=== PATIENT | female | born 1980 | race Caucasian/White ===

== ENCOUNTER 2021-05-15 07:25 | Emergency (ER) | payer BC, SELFPAY ==
[2021-05-15 07:47] VITALS: BP 129/76; PULSE 102; RESP 18; TEMP 36.8; O2SAT 98; BMI 47.8
--- NOTE | 2021-05-15 08:10 | ED_ITS ---
HPI - Weakness General Chief complaint: Weakness Stated complaint: weakness Time Seen by Provider: 05/15/21 08:10 Source: patient Mode of arrival: ambulatory Limitations: no limitations History of Present Illness HPI Narrative: patient with a history of anemia secondary to abnormal uterine bleeding. Started on control which controlled her bleeding. Patient does not have heavy bleeding. Patient denies diabetes, never had COVID and is vaccinated. Complaint: generalized weakness Onset (ago): day(s) Duration: intermittent Location: generalized Severity: moderate Associated symptoms: denies other symptoms Related Data Allergies Allergy/AdvReac Type Severity Reaction Status Date / Time No Known Allergies Allergy Verified 05/15/21 07:47 [No Known Allergies*] Review of Systems Constitutional: Constitutional: Reports no additional constitutional complaints Eyes: Eyes: Reports no additional eye complaints ENT: Denies dizziness Cardiovascular: Cardiovascular: Reports no additional cardiovascular complaints Respiratory: Respiratory: Reports as per HPI Gastrointestinal: Gastrointestinal: Reports no additional gastrointestinal complaints Genitourinary: Genitourinary: Reports no additional female genitourinary complaints Musculoskeletal: Musculoskeletal: Reports no additional musculoskeletal complaints Integumentary/Breasts: Skin/Breast: Denies rash Neurologic: Reports system reviewed and no additional complaints, except as documented, Denies dizziness and Denies Sensory deficit (Neuro) Psychiatric: Psychiatric: Denies anxiety [facility] Past Medical History Medical History Anemia Social History Social History Advance Directives: No Advance Directives Information Provided: Yes Patient : No Physical Exam Vital Signs: Vital Signs: Last Vital Signs Temp 98.2 F 05/15/21 07:47 Pulse 99 05/15/21 08:49 Resp 18 05/15/21 07:47 BP 154/104 H 05/15/21 08:49 Pulse Ox 98 05/15/21 07:47 Body Mass Index 47.8 Const: Other: obese female appearing healthy General: healthy appearing Nutritional Appearance: obese Orientation/consciousness: oriented to person and patient oriented x3 Limitations: no limitations HENMT: Head: Yes normal to inspection Ears: external ears normal General nose exam: Normal external nose present Mouth: Normal oral and palatal mucosa present and oropharynx normal Throat: Yes posterior oropharynx normal Eyes: General: appearance normal, both eyes and all related structures Neck: Other: supple Neck: Yes normal visual inspection Chest: Chest palpation & inspection: normal inspection of the chest Resp: Auscultation: clear to auscultation bilaterally Cardio: Jugular venous distension: no JVD Rate: regular rate Rhythm: regular rhythm Heart sounds: S1 normal heart sound present and S2 normal heart sound present GI: Inspection: Yes normal to inspection Palpation (GI): Soft to palpation, nontender and No hepatosplenomegaly present Auscultation: normal bowel sounds : General: Yes no CVA tenderness Back/Spine/Pelvis: Back: no CVA tenderness Skin: General skin exam: no rashes or lesions noted Neuro: General: oriented to person and patient oriented x3 Cranial nerves: Yes CN's II-XII intact bilaterally Motor exam (neuro): 5/5 motor strength present throughout Sensory Exam: No Sensory deficit (Neuro) Extrem: General: Yes normal to inspection Psych: Appearance: grossly normal Course Reevaluation(s) Reevaluation #1: patient is not orthostatic, labs are normal. patient is dry by UA: specific gravity 1.030. Will encourage hydration Time: 10:19 MDM - Weakness Lab Data Result diagrams: 05/15/21 08:34 05/15/21 08:34 Labs: Lab Results 05/15/21 05/15/21 05/15/21 Range/Units 08:34 08:34 08:57 WBC 8.6 (4.8-10.8) X10*3/uL RBC 3.92 L (4.20-5.50) X10*6/uL Hgb 12.2 (12.0-16.0) g/dl Hct 37.3 (37.0-47.0) % MCV 95.2 (80.0-98.0) fL MCH 31.1 (27.0-33.0) pg MCHC 32.7 (31.0-35.0) g/dl RDW 13.2 (11.0-16.0) % Plt Count 259 (160-400) X10*3/uL MPV 11.1 (9.4-12.3) fL Immature Gran % (Auto) 0.2 (0.0-0.4) % Neut % (Auto) 75.1 H (45-73) % Lymph % (Auto) 15.4 L (20-40) % [place] % (Auto) 7.8 (2-11) % Eos % (Auto) 0.9 (0-4) % Baso % (Auto) 0.6 (0-2) % Lymph # (Auto) 1.3 (1.2-4.9) X10*3/uL [place] # (Auto) 0.7 (0.1-1.2) X10*3/uL Eos # (Auto) 0.1 (0.0-0.4) X10*3/uL Baso # (Auto) 0.1 (0.0-0.2) X10*3/uL Abs Immat Gran (auto) 0.02 (0.00-0.03) X10*3/uL Absolute Neuts (auto) 6.5 (2.0-8.3) x10*3/uL Absolute Nucleated RBC 0.000 (0.0-0.012) X10*3/uL Nucleated RBC % (auto) 0.0 (0.0-0.2) /100WBC Sodium 139 (135-145) mmol/L Potassium 3.9 (3.3-5.1) mmol/L Chloride 107 (96-108) mmol/L Carbon Dioxide 24 (22-29) mmol/L Anion Gap 12 (12-20) BUN 13 (9-16) mg/dL Creatinine 0.84 (0.5-1.4) mg/dL Estim Creat Clear Calc 101.8 Estimated GFR > 60 Random Glucose 108 (60-115) mg/dL Calcium 8.4 (8.4-10.2) mg/dL Urine Color YELLOW Urine Appearance CLEAR Urine pH 6.0 (5.0-8.0) Ur Specific [place] >= 1.030 H (1.005-1.025) Urine Protein TRACE (NEG-TRACE) MG/DL Urine Glucose (UA) NEG (NEG) MG/DL Urine Ketones NEG (NEG) MG/DL Urine Blood 1+ H (NEG) Urine Nitrite NEG (NEG) Ur Leukocyte Esterase NEG (NEG) Urine RBC 1-4 (0) /HPF Urine WBC 5-9 H (0-4) /HPF Ur Squamous Epith Cells 2+ /LPF Urine Bacteria TRACE /LPF Urine Test (NEGATIVE) 05/15/21 Range/Units 08:57 WBC (4.8-10.8) X10*3/uL RBC (4.20-5.50) X10*6/uL Hgb (12.0-16.0) g/dl Hct (37.0-47.0) % MCV (80.0-98.0) fL MCH (27.0-33.0) pg MCHC (31.0-35.0) g/dl RDW (11.0-16.0) % Plt Count (160-400) X10*3/uL MPV (9.4-12.3) fL Immature Gran % (Auto) (0.0-0.4) % Neut % (Auto) (45-73) % Lymph % (Auto) (20-40) % [place] % (Auto) (2-11) % Eos % (Auto) (0-4) % Baso % (Auto) (0-2) % Lymph # (Auto) (1.2-4.9) X10*3/uL [place] # (Auto) (0.1-1.2) X10*3/uL Eos # (Auto) (0.0-0.4) X10*3/uL Baso # (Auto) (0.0-0.2) X10*3/uL Abs Immat Gran (auto) (0.00-0.03) X10*3/uL Absolute Neuts (auto) (2.0-8.3) x10*3/uL Absolute Nucleated RBC (0.0-0.012) X10*3/uL Nucleated RBC % (auto) (0.0-0.2) /100WBC Sodium (135-145) mmol/L Potassium (3.3-5.1) mmol/L Chloride (96-108) mmol/L Carbon Dioxide (22-29) mmol/L Anion Gap (12-20) BUN (9-16) mg/dL Creatinine (0.5-1.4) mg/dL Estim Creat Clear Calc Estimated GFR Random Glucose (60-115) mg/dL Calcium (8.4-10.2) mg/dL Urine Color Urine Appearance Urine pH (5.0-8.0) Ur Specific [place] (1.005-1.025) Urine Protein (NEG-TRACE) MG/DL Urine Glucose (UA) (NEG) MG/DL Urine Ketones (NEG) MG/DL Urine Blood (NEG) Urine Nitrite (NEG) Ur Leukocyte Esterase (NEG) Urine RBC (0) /HPF Urine WBC (0-4) /HPF Ur Squamous Epith Cells /LPF Urine Bacteria /LPF Urine Test NEGATIVE (NEGATIVE) Discharge Plan Discharge Clinical Impression: Dehydration Patient Disposition: Home, Self-Care Instructions: Dehydration (ED) Referrals: Physician,None [Primary Care Provider] - 1 week
[2021-05-15 08:38] LABS: MANUAL DIFF FLAG NO
[2021-05-15 08:40] LABS: Basophils Absolute Auto 0.1 X10*3/uL (0.0-0.2); Basophils Percent Auto 0.6 % (0-2); Eosinophils Absolute Auto 0.1 X10*3/uL (0.0-0.4); Eosinophils Percent Auto 0.9 % (0-4); Hematocrit 37.3 % (37.0-47.0); Hemoglobin 12.2 g/dl (12.0-16.0); Imm Gran Abs Auto 0.02 X10*3/uL (0.00-0.03); Imm Gran Pct Auto 0.2 % (0.0-0.4); Lymphocytes Absolute Auto 1.3 X10*3/uL (1.2-4.9); Lymphocytes Percent Auto 15.4 % (20-40); Mean Corpuscular HGB Conc 32.7 g/dl (31.0-35.0); Mean Corpuscular Hemoglobin 31.1 pg (27.0-33.0); Mean Corpuscular Volume 95.2 fL (80.0-98.0); Mean Platelet Volume 11.1 fL (9.4-12.3); Monocytes Absolute Auto 0.7 X10*3/uL (0.1-1.2); Monocytes Percent Auto 7.8 % (2-11); Neutrophils Absolute Auto 6.5 x10*3/uL (2.0-8.3); Neutrophils Percent Auto 75.1 % (45-73); Platelet Count 259 X10*3/uL (160-400); Red Blood Count 3.92 X10*6/uL (4.20-5.50); Red Cell Distribution Width 13.2 % (11.0-16.0); White Blood Count 8.6 X10*3/uL (4.8-10.8)
[2021-05-15 08:47] VITALS: BP 142/91; PULSE 96
[2021-05-15 08:48] VITALS: BP 137/94; PULSE 97
[2021-05-15 08:49] VITALS: BP 154/104; PULSE 99
[2021-05-15 08:56] LABS: Anion Gap 12 (12-20); Blood Urea Nitrogen 13 mg/dL (9-16); Calcium 8.4 mg/dL (8.4-10.2); Carbon Dioxide 24 mmol/L (22-29); Chloride 107 mmol/L (96-108); Creatinine Clr Calc Pharmacy 101.8; Estimated Glomerular Filt Rate > 60; Glucose Random 108 mg/dL (60-115); Potassium 3.9 mmol/L (3.3-5.1); Sodium 139 mmol/L (135-145)
[2021-05-15 09:06] LABS: Appearance Urine CLEAR; Color Urine YELLOW; Glucose Urine UA NEG (NEG); Leukocyte Esterase Urine NEG (NEG); Nitrite Urine NEG (NEG); Specific Gravity - Urine >= 1.030 (1.005-1.025); UACC Culture Trigger NO; Urine Blood 1+ (NEG); Urine Ketones NEG (NEG); Urine Protein TRACE MG/DL (NEG-TRACE)
[2021-05-15 09:09] LABS: UPreg QC Valid YES; Urine Pregnancy NEGATIVE (NEGATIVE)
[2021-05-15 09:17] LABS: UACC CULT YES
[2021-05-15 09:18] LABS: Bacteria Urine TRACE /LPF; Squamous Epithelial Cell Urine 2+ /LPF
== END 2021-05-15 10:26 | disposition home or self-care (01) ==
PROVIDERS: Emergency Provider Emergency Medicine
DX: E86.0 Dehydration (principal); R53.1 Weakness
CPT/HCPCS: 36415; 80048; 81001; 81025; 85025; 87086; 87147; 99284

== ENCOUNTER → 2023-05-10 07:38 | Outpatient (BNVA) | payer OTHER, SELFPAY | DX: Z13.89 Encounter for screening for other disorder (principal) | CPT/HCPCS: 90715; 99202 ==

== ENCOUNTER 2023-10-27 12:34 | Emergency (ER) | payer OTHER, SELFPAY ==
--- NOTE | ~2023-10-27 | CT_ITS ---
EXAMINATION: CT HEAD WITHOUT CONTRAST CLINICAL INFORMATION: Increased pressure COMPARISON: None available. TECHNIQUE: Contiguous axial imaging was performed from the skull base to vertex without intravenous administration of contrast. This CT examination was performed using dose optimization techniques as appropriate, variously including the following: *Automated exposure control *Adjustment of mA and/or kV according to patient size (this includes techniques or standardized protocols for targeted exams where dose is matched to indication/reason for exam; i.e. extremities or head) *Use of iterative reconstruction technique DLP: 669 mGy-cm FINDINGS: There is no evidence of acute intracranial hemorrhage or territorial infarction. Calcification involving the anterior falx. No abnormal mass effect or midline shift is seen. [place] to white matter differentiation is well preserved. No extra-axial fluid collections are identified. The ventricles are normal in size. There is no abnormal attenuation within the brain parenchyma. The osseous structures and soft tissues are normal. The mastoid air cells and visualized portions of the paranasal sinuses are well aerated. CT/CT head/brain wo IV con IMPRESSION: No acute intracranial pathology.
[2023-10-27 12:44] VITALS: BP 143/96; PULSE 80; RESP 16; TEMP 36.8; O2SAT 98; BMI 48.3
--- NOTE | 2023-10-27 12:44 | ED_ITS ---
HPI - Headache General Chief Complaint: Headache Stated Complaint: Migraine Time Seen by Provider: 10/27/23 16:04 Source: patient, RN notes reviewed and old records reviewed Mode of arrival: ambulatory Limitations: no limitations History of Present Illness HPI Narrative: 43 year old female with pmhx significant for migraines and anemia presents to the ED today for evaluation of intermittent migraine headaches x2 weeks. States this initially felt like her typical migraine however now feels increased pressure along her temples and posterior head which is unusual for her. No known exacerbating factors. Her migraines are typically improved with OTC acetaminophen, Excedrin and ibuprofen but these do not provide full relief. Endorses associated photophobia, phonophobia, dizziness, and shakiness to bilateral hands when holding things. Denies blurred vision, double vision, vision loss. Denies nausea or vomiting. Denies chance of . Related Data Allergies Allergy/AdvReac Type Severity Reaction Status Date / Time No Known Allergies Allergy Verified 10/27/23 12:49 [No Known Allergies*] Review of Systems 2 Review of Systems: Constitutional: No fever, chills, fatigue, night sweats, weight changes ENT/Mouth: No ear pain, hearing loss, nasal congestion, sinus pain, rhinorrhea, sore throat Eyes: No eye pain, swelling, redness, vision changes, discharge Cardio: No chest pain, palpitations, ORELLANA, orthopnea, peripheral edema Pulm: No SOB, cough, sputum, wheezing, dyspnea, hemoptysis GI: No nausea, vomiting, hematemesis, abdominal pain, diarrhea, constipation, hematochezia, melena : No irregular bleeding, dysuria, frequency, urgency, hesitancy, hematuria, flank pain, urinary flow changes, urinary incontinence or retention MSK: No back pain, neck pain, joint pain, myalgias Skin: No lesions, rashes Neuro: No weakness, numbness, paresthesias, LOC, dizziness, +headache Psych: No anxiety/panic, depression, SI/HI, AH/VH All other systems reviewed and are negative. [facility] Past Medical History Attestation statement: The following information was validated with the patient. Source: old records reviewed and nursing notes reviewed Medical History Anemia Physical Exam 2 Vital Signs: Vital Signs: Last Vital Signs Temp 97.3 F 10/27/23 21:32 Pulse 67 10/27/23 21:32 Resp 16 10/27/23 21:32 BP 111/61 10/27/23 21:32 Pulse Ox 98 10/27/23 21:32 O2 Del Method Room Air 10/27/23 21:32 BMI result Body Mass Index 48.3 vital signs stable Const: General: cooperative, healthy appearing, comfortable and no acute distress Orientation/consciousness: patient oriented x3 Limitations: no limitations HEENT: Head: Yes normal to inspection, Yes No palpable skull fracture present, Yes normocephalic, Yes atraumatic, No scalp tenderness and No Temporal artery tenderness present Face and sinus: Yes normal facial exam and Yes sinuses nontender Eyes: General: appearance normal, both eyes and all related structures C onjunctivae: conjunctivae normal Sclerae: sclerae normal Pupils: Equal, round and reactive pupils present EOM: EOMs intact bilaterally Direct Ophthalmoscopy: normal light reflex and no papilledema Neck: Neck: Yes normal visual inspection, Yes full ROM, Yes no lymphadenopathy and Yes no meningeal signs Resp: Effort & Inspection: normal respiratory effort and able to speak in complete sentences Auscultation: clear to auscultation bilaterally Cardio: Rate: regular rate Rhythm: regular rhythm Skin: General skin exam: no rashes or lesions noted Neuro: General: patient oriented x3, gait normal, moves all extremities, no meningeal signs and no focal motor deficits Cranial nerves: Yes Equal, round and reactive pupils present Gait exam (Neuro): Normal gait present C oordination: [id number] test normal, [id number] test normal and Normal rapid alternating movements of the distal upper extremity present (Neuro) P upils: Normal pupillary reactivity/response: bilateral Extrem: General: Yes normal to inspection Course Course Course Narrative: This is an RME performed by Marilia John CNP: Additional HPI, ROS, PE not included below will be deferred to primary provider. Patient is a 43-year-old female who presents emergency department with migraine. Reports a history of intermittent migraine headaches over the past few weeks, typical of her usual migraine but appears to be occurring more frequently and today pain was felt to be worse. Reports onset current migraine this morning, typically does alleviate some with [id number] acetaminophen Excedrin ibuprofen but does not have full relief. She denies being on any alternative migraine medications in the past. Endorses photophobia, phonophobia, dizziness, shakiness to the hands. Denies vision changes, numbness or tingling, recent URI symptoms. Physical exam: NIH - 0. speaking clear full sentences. Ambulatory with a steady gait. Plan: placed in pending bed availability Reevaluation(s) Reevaluation #1: 1808-- CT scan head/brain without evidence of bleed or infarction. There is a calcification along the anterior falx. No obvious mass effect or midline shift. Scan essentially unremarkable. Patient reports minimal improvement in pain with toradol, reglan, and benadryl. She still reports pressure to her temples and occiput. > basic labs and IV mag sulfate ordered Reevaluation #2: Resolution of migraine after magnesium infusion. Requesting discharge home check feels reasonable at this time. No focal neurological deficits. Ambulatory with a steady gait. Discussed return precautions. All questions answered. Stable for discharge Time: 21:00 Medications Administered Discontinued Medications Generic Name Dose Route Start Last Admin Trade Name Joseline PRN Reason Stop Dose Admin Diphenhydramine HCl 50 mg 10/27/23 16:23 10/27/23 16:50 Diphenhydramine Hcl 50 Mg/Ml Vial IVPUSH 10/27/23 16:24 50 mg ONCE ONE Administration Magnesium Sulfate 2 gm in 50 mls @ 25 mls/hr 10/27/23 18:08 10/27/23 21:31 Magnesium Sulfate/H2o IV 10/27/23 20:07 Infused ONCE ONE Infusion Ketorolac Tromethamine 30 mg 10/27/23 16:23 10/27/23 16:53 Ketorolac Tromethamine 30 Mg/Ml Vial IM 10/27/23 16:24 30 mg ONCE ONE Administration Metoclopramide HCl 10 mg 10/27/23 16:23 10/27/23 16:46 Metoclopramide Hcl 10 Mg/2 Ml Vial IVPUSH 10/27/23 16:24 10 mg ONCE ONE Administration Medical Decision Making Medical Decision Making MDM Narrative: 43 year old female with pmhx significant for migraines presents to the ED today for evaluation of intermittent migraine headaches x2 weeks. Patient initially hypertensive to 143/96, now normotensive. Vitals otherwise WNL. Afebrile. Exam nonfocal. PERRLA. NIH stroke scale 0. Cerebellum intact. Ambulating with steady gait. Lying comfortably on exam bed with the lights dimmed due to photophobia. No palpable temporal artery. No scalp tenderness. No jaw claudication. Strength 5/5 intact throughout. Differential diagnosis includes headache, migraine headache, tension headache, dehydration, anemia, electrolyte abnormality. Lower suspicion for ICH, CVA, dissection, cerebellar stroke, pseudotumor cerebri, meningitis, encephalitis, vertigo. Plan for basic labs, pain control, and CT head/brain. Differential Diagnosis Differential Diagnoses: The differential diagnosis associated with the presentation includes as above. Admission/Observation Not indicated Lab Data MDM Lab Attestation statement: I reviewed the patient's lab results. As above 10/27/23 19:41 10/27/23 19:41 Labs: Lab Results 10/27/23 Range/Units 19:41 WBC 11.1 H (4.8-10.8) X10*3/uL RBC 4.65 (4.20-5.50) X10*6/uL Hgb 14.8 D (12.0-16.0) g/dl Hct 43.1 (37.0-47.0) % MCV 92.7 (80.0-98.0) fL MCH 31.8 (27.0-33.0) pg MCHC 34.3 (31.0-35.0) g/dl RDW 13.0 (11.0-16.0) % Plt Count 288 (160-400) X10*3/uL MPV 10.9 (9.4-12.3) fL Immature Gran % (Auto) 0.4 (0.0-0.4) % Neut % (Auto) 67.1 (45-73) % Lymph % (Auto) 23.2 (20-40) % [place] % (Auto) 7.3 (2-11) % Eos % (Auto) 1.1 (0-4) % Baso % (Auto) 0.9 (0-2) % Lymph # (Auto) 2.6 (1.2-4.9) X10*3/uL [place] # (Auto) 0.8 (0.1-1.2) X10*3/uL Eos # (Auto) 0.1 (0.0-0.4) X10*3/uL Baso # (Auto) 0.1 (0.0-0.2) X10*3/uL Abs Immat Gran (auto) 0.04 H (0.00-0.03) X10*3/uL Absolute Neuts (auto) 7.5 (2.0-8.3) x10*3/uL Absolute Nucleated RBC 0.000 (0.0-0.012) X10*3/uL Nucleated RBC % (auto) 0.0 (0.0-0.2) /100WBC ESR 7 (0-20) MM/HR Sodium 141 (135-145) mmol/L Potassium 3.4 (3.3-5.1) mmol/L Chloride 105 (96-108) mmol/L Carbon Dioxide 23 (22-29) mmol/L Anion Gap 16 (12-20) BUN 9 (9-16) mg/dL Creatinine 0.68 (0.5-1.4) mg/dL Estim Creat Clear Calc 123.9 Estimated GFR > 60 Random Glucose 84 (60-115) mg/dL Calcium 9.7 D (8.4-10.2) mg/dL Magnesium 2.0 (1.6-2.6) mg/dL Total Bilirubin 0.5 (0.0-1.0) mg/dL AST 15 (5-31) U/L ALT 21 (0-31) U/L Alkaline Phosphatase 62 (39-117) U/L C-Reactive Protein 0.69 H (< or = 0.50) mg/dL Total Protein 7.2 (6.5-8.0) g/dL Albumin 4.0 (3.5-5.0) g/dL Beta HCG, Quant < 2 mIU/mL Independent Interpretation I performed an independent interpretation of an: CT Scan Interpretation: CT scan showing calcified anterior falx, agree with radiologist's interpretation. Radiology Impression Discussion of test interpretation with radiology: I have reviewed the radiologist's reading. Radiologist Impression: EXAMINATION: CT HEAD WITHOUT CONTRAST CLINICAL INFORMATION: Increased pressure COMPARISON: None available. TECHNIQUE: Contiguous axial imaging was performed from the skull base to vertex without intravenous administration of contrast. This CT examination was performed using dose optimization techniques as appropriate, variously including the following: *Automated exposure control *Adjustment of mA and/or kV according to patient size (this includes techniques or standardized protocols for targeted exams where dose is matched to indication/reason for exam; i.e. extremities or head) *Use of iterative reconstruction technique DLP: 669 mGy-cm FINDINGS: There is no evidence of acute intracranial hemorrhage or territorial infarction. Calcification involving the anterior falx. No abnormal mass effect or midline shift is seen. [place] to white matter differentiation is well preserved. No extra-axial fluid collections are identified. The ventricles are normal in size. There is no abnormal attenuation within the brain parenchyma. The osseous structures and soft tissues are normal. The mastoid air cells and visualized portions of the paranasal sinuses are well aerated. CT/CT head/brain wo IV con IMPRESSION: No acute intracranial pathology. Prescription Management I considered prescription management with: Pain Medication Chronic Conditions Patient?s care impacted by: Other (migraines) Social Determinants Patient?s care significantly limited by Social Determinants of Health including: Other Social Determinant of Health Critical Care Time Critical Care Time Critical Care Time: No Discharge Plan Discharge Clinical Impression: Migraine Patient Disposition: Home, Self-Care Instructions: Migraine Headache (ED) Additional Instructions: The CT scan of your head/brain does not demonstrate mass or bleed. It does show calcification on the anterior falx like we discussed. You have been provided with a referral to a neurologist. Please call them to establish care. They will not call you. You have also been provided with a referral to a new primary care doctor. You may call them to establish care. They will not call you. Please return with new or worsening symptoms. In the case of an emergency call 911. Referrals: [facility] [place] Family Medicine [Provider Group] [facility] [place] Primary [facility] [Provider Group] [facility] [place] Primary [facility] [Provider Group] [facility] [place] [facility] [place] Group] Stand Alone Forms: Work/School Release Interventions: ED Discharge Assessment Last Done: 10/27/23 21:32 Discharge Date/Time: 10/27/23 21:32 Print Language: Hungarian
[2023-10-27] MEDS: Metoclopramide HCl 10 MG/2 ML VIAL IVPUSH (16:46)
[2023-10-27] MEDS: diphenhydrAMINE HCL 50 MG/ML VIAL IVPUSH (16:50)
[2023-10-27] MEDS: Ketorolac Tromethamine 30 MG/ML VIAL IM (16:53)
[2023-10-27 17:08] VITALS: BP 114/50; PULSE 74; RESP 16; TEMP 36.7; O2SAT 97
--- NOTE | 2023-10-27 17:25 | PC.NURSE ---
radiology contacted for stat read of CT head- pt reporting less pain 6/10 but consistent pressure in right of head, and back of head. MILLICENT Molina aware
[2023-10-27 18:11] VITALS: BP 111/61; PULSE 67; RESP 16; TEMP 36.3; O2SAT 98
[2023-10-27 19:45] LABS: MANUAL DIFF FLAG NO
[2023-10-27 19:46] LABS: Basophils Absolute Auto 0.1 X10*3/uL (0.0-0.2); Basophils Percent Auto 0.9 % (0-2); Eosinophils Absolute Auto 0.1 X10*3/uL (0.0-0.4); Eosinophils Percent Auto 1.1 % (0-4); Hematocrit 43.1 % (37.0-47.0); Hemoglobin 14.8 g/dl (12.0-16.0); Imm Gran Abs Auto 0.04 X10*3/uL (0.00-0.03); Imm Gran Pct Auto 0.4 % (0.0-0.4); Lymphocytes Absolute Auto 2.6 X10*3/uL (1.2-4.9); Lymphocytes Percent Auto 23.2 % (20-40); Mean Corpuscular HGB Conc 34.3 g/dl (31.0-35.0); Mean Corpuscular Hemoglobin 31.8 pg (27.0-33.0); Mean Corpuscular Volume 92.7 fL (80.0-98.0); Mean Platelet Volume 10.9 fL (9.4-12.3); Monocytes Absolute Auto 0.8 X10*3/uL (0.1-1.2); Monocytes Percent Auto 7.3 % (2-11); Neutrophils Absolute Auto 7.5 x10*3/uL (2.0-8.3); Neutrophils Percent Auto 67.1 % (45-73); Platelet Count 288 X10*3/uL (160-400); Red Blood Count 4.65 X10*6/uL (4.20-5.50); White Blood Count 11.1 X10*3/uL (4.8-10.8)
[2023-10-27 20:00] LABS: Alanine Aminotransferase 21 U/L (0-31); Alkaline Phosphatase 62 U/L (39-117); Anion Gap 16 (12-20); Aspartate Amino Transferase 15 U/L (5-31); Bilirubin Total 0.5 mg/dL (0.0-1.0); Blood Urea Nitrogen 9 mg/dL (9-16); C Reactive Protein 0.69 mg/dL (< or = 0.50); Calcium 9.7 mg/dL (8.4-10.2); Carbon Dioxide 23 mmol/L (22-29); Chloride 105 mmol/L (96-108); Creatinine Clr Calc Pharmacy 123.9; Estimated Glomerular Filt Rate > 60; Glucose Random 84 mg/dL (60-115); Potassium 3.4 mmol/L (3.3-5.1); Sodium 141 mmol/L (135-145); Total Protein 7.2 g/dL (6.5-8.0)
[2023-10-27] MEDS: Magnesium Sulfate/H2O 2 GM/50 ML PIGGYBACK IV (20:03)
[2023-10-27 20:21] LABS: HCG Quantitative < 2 mIU/mL
[2023-10-27 20:44] LABS: Erythrocyte Sedimentation Rate 7 MM/HR (0-20)
[2023-10-27 21:32] VITALS: BP 111/61; PULSE 67; RESP 16; TEMP 36.3; O2SAT 98
== END 2023-10-27 21:32 | disposition home or self-care (01) ==
PROVIDERS: Physician Assistant Medical; Emergency Provider Emergency Medicine Emergency Medical Services
DX: G43.909 Migraine, unspecified, not intractable, without status migrainosus (principal)
CPT/HCPCS: 36415; 70450; 80053; 83735; 84702; 85025; 85652; 86140; 96365; 96372; 96375; 99284; J1200; J1885; J2765; J3475

== ENCOUNTER 2023-11-10 11:42 | Emergency (ER) | payer OTHER, SELFPAY ==
[2023-11-10 11:52] VITALS: BP 150/87; PULSE 68; RESP 16; TEMP 36.6; O2SAT 100; BMI 48.5
--- NOTE | 2023-11-10 11:53 | ED.HA ---
HPI - Headache General Chief Complaint: Headache Stated Complaint: migrane Time Seen by Provider: 11/10/23 18:34 Source: patient Mode of arrival: ambulatory Limitations: no limitations History of Present Illness HPI Narrative: Patient is a 43-year-old female presenting to emergency department for evaluation of migraine headache began yesterday and has associated nausea without vomiting, photophobia, phonophobia. Took apap at 0815 without relief. She was recently referred to see a neurologist/headache specialist but does not have appointments until later this year. Related Data Allergies Allergy/AdvReac Type Severity Reaction Status Date / Time No Known Allergies Allergy Verified 11/10/23 11:54 [No Known Allergies*] Review of Systems Review of Systems: Yes all other systems are reviewed and are negative PMFSH Past Medical History Attestation statement: The following information was validated with the patient. Source: old records reviewed Medical History Anemia Social History Social History Advance Directives: No Advance Directives Information Provided: No Physical Exam Vital Signs: Vital Signs: Last Vital Signs Temp 97.8 F 11/10/23 11:52 Pulse 65 11/10/23 18:46 Resp 16 11/10/23 11:52 BP 138/91 H 11/10/23 18:46 Pulse Ox 98 11/10/23 18:46 O2 Del Method Room Air 11/10/23 18:46 BMI result Body Mass Index 48.5 Appearance: Alert.?Oriented to person, place and time. No acute distress.?Normal affect. Eyes: Pupils equal, round and reactive to light.? ENT: Pharynx normal.?? Neck: Normal inspection.? Neck supple.?? CVS: Heart sounds normal. Normal heart rate and rhythm.? Pulses normal.?? Respiratory: No respiratory distress.? Lung sounds clear to auscultation bilaterally?? Abdomen: Soft and non-tender. Normoactive bowel sounds. Skin: Skin warm and dry.? Normal skin color.? ? Extremities: No lower extremity edema.? No calf ttp? Neuro: Moves all extremities spontaneously. Sensation intact bilaterally. CN II-XII intact. No focal neuro deficits. Ambulates with normal steady gait. Course Reevaluation(s) Reevaluation #1: Unrelieved with Fioricet. She would really like to avoid the magnesium, as she is hopeful to trial an abortive therapy that she can have available to her at home. Will trial sumatriptan. We discussed use of magnesium oxide 400 mg orally daily for migraine prevention. Time: 19:45 Reevaluation #2: Patient signed out to Candido Cee NP pending re-evaluation and disposition planning Time: 20:56 Reevaluation #3: Patient denies any relief of headache from Fioricet or sumatriptan. Will medicate patient with IV magnesium as this has improved her symptoms in the past. Time: 22:41 Additional Reevaluation(s): 11/11/23 01:15 Patient reports good relief of migraine from magnesium given in the ED. Again discussed use of PO magnesium oxide with patient at home on a regular basis for migraine relief. Return precautions discussed. Patient verbalized understanding of and agreement with plan. Medications Administered Discontinued Medications Generic Name Dose Route Start Last Admin Trade Name Datq PRN Reason Stop Dose Admin Acetaminophen/Butalbital/Caffeine 1 tab 11/10/23 18:34 11/10/23 18:44 Butalb/Acetamin/Caff 50/325/40 Tablet PO 11/10/23 18:35 1 tab ONCE ONE Administration Magnesium Sulfate 2 gm in 50 mls @ 25 mls/hr 11/10/23 22:41 11/11/23 00:30 Magnesium Sulfate/H2o IV 11/11/23 00:40 25 mls/hr ONCE ONE Administration Sumatriptan Succinate 50 mg 11/10/23 19:45 11/10/23 20:15 Sumatriptan Succinate 50 Mg Tablet PO 11/10/23 19:46 50 mg ONCE ONE Administration Medical Decision Making Medical Decision Making [facility] Narrative: Patient is a 43-year-old female with past medical history of migraines and anemia presenting to the emergency department for evaluation of migraine headache since yesterday as per HPI. On exam she has no focal neurological deficits, NIH stroke score is 0, at this time do not feel that emergent head CT is warranted, do not suspect ICH, SDH, intracranial mass. Review of her medical record she was evaluated in the emergency department 10/27/2023 for similar station, she initially received ketorolac Reglan and Benadryl IV without any improvement, subsequently received magnesium 2 g IV with resolution of her migraine. She had a CT scan then of the head which was without acute intracranial pathology. We discussed treatment options today, including magnesium IV, however she would like to trial something orally so that she could be discharged with a prescription for something in the event that OTC medications are not helpful in the future. She does not have a primary care provider at this time so she does not have the option for close follow-up. Will trial Fioricet. Differential Diagnosis Differential Diagnoses: The differential diagnosis associated with the presentation includes (See narrative above) Lab Data Labs: Lab Results 11/10/23 Range/Units 18:50 Influenza Type A (PCR) NEGATIVE (Negative) Influenza Type B (PCR) NEGATIVE (Negative) RSV RNA Qual (PCR) NEGATIVE (Negative) SARS-CoV-2 RNA (RT-PCR) NEGATIVE (Negative) Prescription Management I considered prescription management with: Pain Medication Discharge Plan Discharge Clinical Impression: Migraine Patient Disposition: Home, Self-Care Instructions: Migraine Headache (ED) Additional Instructions: You have been evaluated in the emergency department today for headache. Your evaluation did not show evidence of medical conditions requiring emergent intervention at this time, and your pain improved with medication in the ED. We recommend you take 600 mg ibuprofen every 6 hours or Tylenol 650 mg every 6 hours as needed for pain. If needed, you can alternate these medications so that you take 1 medication every 3 hours. For instance, at noon take ibuprofen, then at 3:00 p.m. take Tylenol, then at 6:00 p.m. take ibuprofen. Please follow-up with your primary care provider within 2 days. We also recommend that you take MAGNESIUM OXIDE 400mg at home which you can purchase over the counter for help with your migraine pain at home. Return to the emergency department if you experience worsening or uncontrolled pain, vision changes, recurrent vomiting, difficulty with normal activities, abnormal behavior, difficulty walking, numbness, weakness, or any other concerning symptoms. Print Language: [place]
--- NOTE | 2023-11-10 18:43 | PC.NURSE ---
patient a&ox3, medicated for 8 headache, tech to obtain repeat vitals, call samuels within reach, will continue to monitor
[2023-11-10] MEDS: Butalb/Acetamin/Caff 50/325/40 TABLET 1 TAB PO (18:44)
[2023-11-10 18:46] VITALS: BP 138/91; PULSE 65; O2SAT 98
[2023-11-10 19:32] LABS: Influenza A PCR NEGATIVE (Negative); Influenza B PCR NEGATIVE (Negative); Resp Syncy Virus RNA Qual PCR NEGATIVE (Negative); SARS COV2 PCR INHOUSE NEGATIVE (Negative)
--- NOTE | 2023-11-10 19:57 | PC.NURSE ---
pharmacy called for missing medications
[2023-11-10] MEDS: SUMAtriptan succinate 50 MG TABLET PO (20:15)
--- NOTE | 2023-11-10 20:21 | PC.NURSE ---
pt medicated for continued migraine
[2023-11-11] MEDS: Magnesium Sulfate/H2O 2 GM/50 ML PIGGYBACK IV (00:30)
[2023-11-11 02:23] VITALS: BP 136/72; PULSE 68; RESP 16; TEMP 36.9; O2SAT 99
== END 2023-11-11 02:27 | disposition home or self-care (01) ==
PROVIDERS: Nurse Practitioner Family; Emergency Provider Internal Medicine
DX: G43.909 Migraine, unspecified, not intractable, without status migrainosus (principal); Z03.818 Encounter for observation for suspected exposure to other biological agents ruled out
CPT/HCPCS: 0241U; 96365; 96366; 99284; J3475

== ENCOUNTER 2024-02-02 08:01 | Emergency (ER) | payer OTHER, SELFPAY ==
[2024-02-02 08:07] VITALS: BP 150/95; PULSE 83; RESP 18; TEMP 37.2; O2SAT 98; BMI 48.8
--- NOTE | 2024-02-02 08:32 | ED.HA ---
HPI - Headache General Chief Complaint: Headache Stated Complaint: Headache Time Seen by Provider: 02/02/24 08:18 Source: patient Mode of arrival: ambulatory Limitations: no limitations History of Present Illness ED Provider: ROOSEVELT ZULUAGA Narrative: 43 yo female with chronic headaches has been here a few times for same not on thinners daily headaches around front of head wraps around taking tylenol/motrin and magnesium. Has not had her lens prescription checked in a while. Cannot see her PCP until February and no Neurology until April. CT scan back in October of this year no acute findings. MD elicited complaint: headache Pertinent past history: migraines Onset (ago): month(s) (4) Onset description: gradually Location: right, left, frontal, temporal and band-like Severity: moderate Quality & Timing: dull, squeezing and constant Exacerbating factors: movement of head/neck, sitting/standing, light and noise Relieving factors: NSAIDs Context: occurred at rest Associated symptoms: nausea, photophobia, sensitivity to sound and eye pain Treatments prior to arrival: none Related Data Previous Rx's ?Medication ?Instructions ?Recorded topiramate 25 mg tablet 25 mg PO DAILY #60 tabs 02/02/24 Allergies Allergy/AdvReac Type Severity Reaction Status Date / Time No Known Allergies Allergy Verified 02/02/24 08:10 [No Known Allergies*] Review of Systems Review of Systems: Constitutional : No Fever, No Chills, No Fatigue ENT/Mouth : No sore throat, No Rhinorrhea Eyes: No Eye Pain, No Swelling, No Redness Cardiovascular : No Chest Pain, No SOB, No Dyspnea on Exertion Respiratory : No Cough, No Sputum Gastrointestinal :pos Nausea, No Vomiting, No Diarrhea, No abdominal Pain Genitourinary : No Dysuria, No Urinary Frequency, No Hematuria, Musculoskeletal : No joint pain, No Myalgias, No Joint Swelling Skin : No Skin Lesions, No rash Neuro : No Weakness, No Numbness, No Dizziness, positive Headache Psych : No Anxiety/Panic, No Depression All other systems reviewed and are negative [facility] Past Medical History Attestation statement: The following information was validated with the patient. Source: old records reviewed Medical History Anemia Social History Social History (Updated 02/02/24 @ 08:42 by Cyn Katz DO) Patient Tobacco Use Status: Never used Tobacco Smoked in Last 30 Days: No Use of substances other than those prescribed or required for medical reasons: No Advance Directives: No Advance Directives Information Provided: No Do you have a plan to hurt others: No Plan Physical Exam Vital Signs: Vital Signs: Last Vital Signs Temp 98.9 F 02/02/24 08:07 Pulse 83 02/02/24 08:07 Resp 18 02/02/24 08:07 BP 150/95 H 02/02/24 08:07 Pulse Ox 98 02/02/24 08:07 O2 Del Method Room Air 02/02/24 08:07 BMI result Body Mass Index 48.8 Appearance: Alert. Oriented X3. No acute distress. Eyes: Pupils equal, round and reactive to light. ENT: Pharynx normal. Neck: Normal inspection. Neck supple. normal ROM CVS: Normal heart rate and rhythm. Pulses normal. Respiratory: No respiratory distress. Breath sounds normal. Abdomen: Soft and nontender. Skin: Skin warm and dry. Normal skin color. Normal skin turgor. Extremities: No lower extremity edema. No calf ttp Neuro: Oriented X 3. No motor deficit. No sensory deficit. Medications Administered Generic Name Dose Route Start Last Admin Trade Name Freq PRN Reason Stop Dose Admin Sodium Chloride 1,000 mls @ 999 mls/hr 02/02/24 08:27 02/02/24 08:38 Ns IV 02/02/24 09:27 999 mls/hr .Q1H1M ONE Administration Discontinued Medications Generic Name Dose Route Start Last Admin Trade Name Freq PRN Reason Stop Dose Admin Diphenhydramine HCl 25 mg 02/02/24 08:27 02/02/24 08:39 Diphenhydramine Hcl 50 Mg/Ml Vial IVPUSH 02/02/24 08:28 25 mg ONCE ONE Administration Ketorolac Tromethamine 15 mg 02/02/24 08:27 02/02/24 08:42 Ketorolac Tromethamine 15 Mg/Ml Vial IVPUSH 02/02/24 08:28 15 mg ONCE ONE Administration Metoclopramide HCl 10 mg 02/02/24 08:27 02/02/24 08:41 Metoclopramide Hcl 10 Mg/2 Ml Vial IVPUSH 02/02/24 08:28 10 mg ONCE ONE Administration Medical Decision Making Medical Decision Making MDM Narrative: 43 yo female with recent headaches seen here multiple times for the same at this time not toxic no neuro deficits no fevers given chronicity and prior CT scan doubt mass or SAH, no fevers to suggest [employer] infection at this time will provide GI cocktail and we talked about starting a medication such as topiramate she has no hx of severe depression or SI discussed starting 25mg daily x 1 week then 50mg. Will continue this until she sees her PCP. Discussed side effects her and mom want to proceed Differential Diagnosis Differential Diagnoses: The differential diagnosis associated with the presentation includes tension headaches, migraines Admission/Observation Consideration of admission/observation: Escalation of care including admission/observation considered feels better stable for DC Independent Historian Clinical information obtained from an independent historian. History obtained from or confirmed by: Parent External Record Review External record reviewed: Inpatient record Prescription Management I considered prescription management with: Other Discharge Plan Discharge Clinical Impression: Migraine Patient Disposition: Home, Self-Care Instructions: Topiramate (By mouth), Migraine Headache (ED) Additional Instructions: please get your eyes checked return for any worsening symptoms or concerns continue tylenol motrin and magnesium follow up with primary care doctor as planned Prescriptions: New topiramate 25 mg tablet 25 mg PO DAILY Qty: 60 0RF Rx Instructions: 25mg daily for 7 days then 50mg daily Stand Alone Forms: Work/School Release Print Language: Vincentian
[2024-02-02] MEDS: 0.9 % Sodium Chloride 1,000 ML 999 ML IV (08:38)
[2024-02-02] MEDS: diphenhydrAMINE HCL 50 MG/ML VIAL 25 MG IVPUSH (08:39)
[2024-02-02] MEDS: Metoclopramide HCl 10 MG/2 ML VIAL IVPUSH (08:41)
[2024-02-02] MEDS: Ketorolac Tromethamine 15 MG/ML VIAL IVPUSH (08:42)
[2024-02-02 10:24] VITALS: BP 117/60; PULSE 82; RESP 18; TEMP 36.7; O2SAT 96
[2024-02-02] MEDS: Cyclobenzaprine HCl 10 MG TABLET PO (10:41)
[2024-02-02] MEDS: Acetaminophen 325 MG TABLET 975 MG PO (10:41)
[2024-02-02 11:43] VITALS: BP 128/68; PULSE 86; RESP 18; TEMP 36.7; O2SAT 98
== END 2024-02-02 11:44 | disposition home or self-care (01) ==
PROVIDERS: Emergency Provider Emergency Medicine
DX: G43.909 Migraine, unspecified, not intractable, without status migrainosus (principal); R11.0 Nausea; H53.143 Visual discomfort, bilateral
CPT/HCPCS: 96361; 96374; 96375; 99284; J1200; J1885; J2765

== ENCOUNTER 2024-05-12 08:04 | Outpatient (AMB) | payer SELFPAY ==
--- NOTE | 2024-05-12 08:19 | A.OFFVIS_ITS ---
Vital Signs 05/12/24 08:20 Height 5 ft Weight 262 lb 6 oz BMI 51.2 BP 118/70 Blood Pressure Location Rt brachial Position Sitting Pulse 67 Pulse Source Pulse Oximeter Pulse Oximetry (%) 98 Oxygen Delivery Method Room Air Intake Visit Reasons: 5/6LVM+Let - [id number] Intake Note: Headaches are random and lots of pressure behind the head. Accompanied by: Self / Same As Patient Allergies No Known Allergies [No Known Allergies*] Allergy (Verified 05/12/24 08:24) Medication List - Last Reconciled 05/12/24 by DOE Pinto No Known Home Meds Do you need a note to return to daycare/school/sports/work: No HPI Comments Details: Right-handed 44-yr-old female presents for new pt evaluation of headache disorder per referral from PCP. Pt reports she has had headaches since childhood which have been worsening and changing earlier this year without known cause. She has daily headaches for some time, but this intensified and has had stronger daily headaches and now more pressure and right facial numbness sensation w/ her migraine attacks since the beginning of the year. She has not seen neurology before. She is hoping to understand the cause of her migraine and head pressure s/s. PMH and ROS are notable for:? General: fatigue, KALE- has needed transfusions, intentional wt loss- through diet. Vision- vision may be blurry at times w/wo headache. 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 Family history of migraine or other headache disorder: her mom had a benign brain tumor. Pertinent denials include: Tinnitus or whooshing tinnitus. History of concussion/head injury, Respiratory d/o, CV disease, Clotting or hematology d/o, Endocrine d/o, metabolic d/o, History of seizure, syncope, or drop attacks, constipation. Lifestyle considerations: Sleep routine: Usual sleep routine: varies d/t work Sleep difficulties: sometimes. Endorses: Snoring, Excessive daytime sleepiness, Fatigue, Restless sleep, Restless legs- sometimes can be bothersome, urge to move, has to get up and walk around. Caffeine use: has been decreasing use- 1-2 cups per day Substance use: none Exercise:?tries. 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 Not currently sexually active. Headache questionnaire:? Previous work-up: October 2023, Head CT- read as normal. Last eye exam- Typical headache characteristics: Prodrome symptoms: fatigue Aura: Once or twice has seen little white dots before the headache Pain intensity: moderate to severe Location, quality, characteristics: Pressure starts in the back of her head, and moves into the right retroorbital and periorbital eye region, becomes right frontal/wayne-orbital pounding and throbbing. Associated symptoms: photophobia, phonophobia, osmophobia, nausea, once had spinning dizziness, not right in space dizziness, lightheadedness, fatigue, cognitive difficulties, activity intolerance, watery eyes, hands become tingling and cold, right side of face/eye- altered sensation/numbness- which is a newer symptom. Postdrome: lingers Triggers: no known triggers. WOLFE worsens if bends over. Time of day: No specific time of day Duration and Frequency: Almost daily. An attack can last days to weeks. How does headache impact your life? Has had to miss to work and has had 3 ER visits since October 2023. Current acute medication use/interventions: Excedrin 2 tabs almost daily, Ibuprofen 600mg about once a week, Tylenol 1000mg every other day. Current preventative medication use: None Non-pharmacological interventions: Rest, migraine cooling cap. [facility] Medical History Anemia Social History (Updated 02/02/24 @ 08:42 by Cyn Katz DO) Patient Tobacco Use Status: Never used Tobacco Physical Exam Vital Signs: Last Vital Signs Pulse 67 05/12/24 08:20 BP 118/70 05/12/24 08:20 Pulse Ox 98 05/12/24 08:20 Oxygen Delivery Method Room Air 05/12/24 08:20 BMI result Body Mass Index 51.2 Const Orientation/consciousness: patient oriented x3 Resp Effort & Inspection: normal respiratory effort and able to speak in complete sentences Neuro Other: No palpable scalp tenderness. Mild posterior cervical tightness. Good cervical ROM, though extension elicits mild discomfort. General: patient oriented x3 Cranial nerves: Yes CN's II-XII intact bilaterally (w/ very mild right sided facial assymetry), Yes Bilaterally intact EOM present and Yes Nystagmus not present Cognition (Neuro): normal cognition Gait exam (Neuro): Normal gait present Motor exam (neuro): 5/5 motor strength present throughout Deep tendon reflexes (DTR's): Right triceps reflex intensity grade: 2+, Left triceps reflex intensity grade: 2+, Rt Biceps (C5, C6): 2+, Left biceps reflex intensity grade: 2+, Right brachioradialis reflex intensity grade: 2+, Left brachioradialis reflex intensity grade: 2+, Right patellar reflex intensity grade: 2+ and Left patellar reflex intensity grade: 2+ Coordination: [id number] test normal, tandem gait normal and Romberg test negative Pupils: Normal pupillary reactivity/response: bilateral Psych Appearance: grossly normal Mental Status: mental status grossly normal Speech and movement: Normal speech and movement present Affect: normal affect Attitude: cooperative Thought process: Normal thought process present Assessment & Plan Assessment & Plan (1) Worsening headaches: Comment: Increased frequency, intensity, and new symptoms of pressure, right facial numbness/altered sensation Code(s): R51.9 - Headache, unspecified Category: Medical (2) Chronic migraine with aura: Comment: sensory aura s/s- cold/tingling hands Code(s): G43.E09 - Chronic migraine with aura, not intractable, without status migrainosus Category: Medical (3) Snoring: Code(s): R06.83 - Snoring Category: Medical (4) Excessive daytime sleepiness: Comment: ESS 10 Code(s): G47.19 - Other hypersomnia Category: Medical (5) BMI 50.0-59.9, adult: Code(s): Z68.43 - Body mass index [BMI] 50.0-59.9, adult Category: Medical (6) Restless leg syndrome: Code(s): G25.81 - Restless legs syndrome Category: Medical (7) Paresthesia: Code(s): R20.2 - Paresthesia of skin Category: Medical (8) Fatigue: Code(s): R53.83 - Other fatigue Category: Medical Plan Pt advised to undergo: Eye exam to assess for papilledema and visual field testing Brain MRI w/wo to assess for secondary etiologies of new worsening headache w/ new right facial paresthesias/numbness. In-lab PSG to assess for sleep apnea and PLMS. Labs- for common etiologies of worsening headaches, paresthesias, and RLS s/s. Note- pt states that she currently does not have medical insurance or PCP. Pt advised on resources to help her obtain insurance. Once she has insurance, pt will notify us so we can enter orders. 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 For overall headache management: * Optimize good self-care, including but not limited to maintaining a healthy diet, adequate fluid intake, adequate sleep, and engaging in regular physical activity. * Track headaches, especially after any treatment regimen changes. Migraine [employer] is one of many headache tracking apps. * Information shared on non-pharmacological interventions which may help to alleviate headache attack burden. For light sensitivity: Patient may benefit from trying blue light filtering glasses, green glasses, green light therapy. Avoiding wearing sunglasses inside. For sound sensitivity: Patent may benefit from trying noise cancellation ear plugs. Neuromodulation devices, which can be used alone or with pharmacological treatment. * Information shared on sleep education resources, specifically resource for shift work sleep d/o's. For acute headache treatment: Discussed importance of taking acute medications at the first sign of headache, however stressed importance of avoiding acute medication overuse (especially with combined headache medications). Stop Excedrin use. Trial Sumatriptan 100mg tab, 1/2 - 1 tab (50-100mg) at onset of headache, may repeat in 2 hours. Max of 2 tabs (200mg) per 24 hours. May adjunct with OTC Tylenol 650mg q 4 hours, Ibuprofen 600mg q 6 hours, or Naproxen 440mg q 12 hrs prn. Potential adverse effects of triptans, include but are not limited to nausea, fatigue, chest tightness/tingling (usually passes within a few minutes), medication overuse headaches. Previous acute migraine medication trials: Excedrin- ineffective. Acute migraine medication contraindications: None at this time For headache prevention medication: Preventative medications should be taken routinely as prescribed for best effect, it may take several weeks for full effect to take effect. Start Riboflavin 400mg qam Start Magnesium 400mg qhs Start Topiramate 25mg tab- 1 tab qhs x's 1 wk, then 2 tabs qhs x's 1 wk, then 3 tabs qhs x's 1 wk, then 4 tabs qhs. Potential adverse effects of Topiramate, include but are not limited to fatigue, cognitive changes, paresthesias (tingling), vision changes, kidney stones. Previous migraine prevention medication trials: None at this time Migraine prevention medication contraindications: None at this time Pt seen in collaboration w/ Dr Kiley Britt. Pt to follow-up in 3-4 months or sooner prn. Orders: Orders IRON PROFILE Today D50.9 - Iron deficiency anemia, unspecified, G25.81 - Restless legs syndrome, R20.2 - Paresthesia of skin, R53.83 - Other fatigue, Z68.43 - Body mass index [BMI] 50.0-59.9, adult Vitamin D 25-OH (D2 and D3) Today D50.9 - Iron deficiency anemia, unspecified, G25.81 - Restless legs syndrome, R20.2 - Paresthesia of skin, R53.83 - Other fatigue, Z68.43 - Body mass index [BMI] 50.0-59.9, adult CRP High Sensitivity Today D50.9 - Iron deficiency anemia, unspecified, G25.81 - Restless legs syndrome, R20.2 - Paresthesia of skin, R53.83 - Other fatigue, Z68.43 - Body mass index [BMI] 50.0-59.9, adult Erythrocyte Sedimentation Rate Today D50.9 - Iron deficiency anemia, unspecified, G25.81 - Restless legs syndrome, R20.2 - Paresthesia of skin, R53.83 - Other fatigue, Z68.43 - Body mass index [BMI] 50.0-59.9, adult Lipid Panel with Reflex Today R79.82 - Elevated C-reactive protein (CRP), Z68.43 - Body mass index [BMI] 50.0-59.9, adult Ferritin Today D50.9 - Iron deficiency anemia, unspecified, G25.81 - Restless legs syndrome, R20.2 - Paresthesia of skin, R53.83 - Other fatigue, Z68.43 - Body mass index [BMI] 50.0-59.9, adult TSH reflex Free T4 Today D50.9 - Iron deficiency anemia, unspecified, G25.81 - Restless legs syndrome, R20.2 - Paresthesia of skin, R53.83 - Other fatigue, Z68.43 - Body mass index [BMI] 50.0-59.9, adult Vitamin B12 and Folate Today D50.9 - Iron deficiency anemia, unspecified, G25.81 - Restless legs syndrome, R20.2 - Paresthesia of skin, R53.83 - Other fatigue, Z68.43 - Body mass index [BMI] 50.0-59.9, adult Hemoglobin A1c Today D50.9 - Iron deficiency anemia, unspecified, G25.81 - Restless legs syndrome, R20.2 - Paresthesia of skin, R53.83 - Other fatigue, Z68.43 - Body mass index [BMI] 50.0-59.9, adult Comprehensive Met. Panel Today D50.9 - Iron deficiency anemia, unspecified, G25.81 - Restless legs syndrome, R20.2 - Paresthesia of skin, R53.83 - Other fatigue, Z68.43 - Body mass index [BMI] 50.0-59.9, adult Complete Blood Count Auto Diff Today D50.9 - Iron deficiency anemia, unspecified, G25.81 - Restless legs syndrome, R20.2 - Paresthesia of skin, R53.83 - Other fatigue, Z68.43 - Body mass index [BMI] 50.0-59.9, adult Medications: New riboflavin (vitamin B2) 400 mg PO DAILY 30 days 30 tabs 6RF sumatriptan succinate (0.5 - 1 x 100 mg) 50 - 100 mg orally at onset of headache, may repeat in 2 hrs PRN; max 2 tabs per day or 4 tabs/week (may take with Ibuprofen) 30 days 12 tabs 6RF migraine headache magnesium oxide may hold for loose stools 400 mg PO BEDTIME 30 days 30 tabs 6RF topiramate 1 tab qhs x's 1 wk, then 2 tabs qhs x's 1 wk, then 3 tabs qhs x's 1 wk, then 4 tabs qhs orally bedtime; 30 days 120 tabs 3RF Discontinued topiramate 25mg daily for 7 days then 50mg daily Discontinued Reason: Patient Completed Course 25 mg PO DAILY 60 tabs 0RF Coding Level of Care Code New Pt Level 4 (21026) Diagnoses Worsening headaches R51.9 Chronic migraine with aura G43.E09 Snoring R06.83 Excessive daytime sleepiness G47.19 BMI 50.0-59.9, adult Z68.43 Restless leg syndrome G25.81 Paresthesia R20.2 Fatigue R53.83
[2024-05-12 08:20] VITALS: BP 118/70; PULSE 67; O2SAT 98; BMI 51.2
== END 2024-05-12 09:55 | disposition home or self-care (01) ==
PROVIDERS: Visit Provider Nurse Practitioner Family
DX: G43.E09 Chronic migraine with aura, not intractable, without status migrainosus (principal); R06.83 Snoring; G47.19 Other hypersomnia; E66.01 Morbid (severe) obesity due to excess calories; Z68.43 Body mass index [BMI] 50.0-59.9, adult; G25.81 Restless legs syndrome; R20.2 Paresthesia of skin; R53.83 Other fatigue
CPT/HCPCS: 99204

== ENCOUNTER → 2024-05-12 08:04 | Outpatient (BNVA) | payer OTHER, SELFPAY | PROVIDERS: Visit Provider Nurse Practitioner Family | DX: G43.E09 Chronic migraine with aura, not intractable, without status migrainosus (principal); R06.83 Snoring; G47.19 Other hypersomnia; G25.81 Restless legs syndrome; R20.2 Paresthesia of skin; R53.83 Other fatigue | CPT/HCPCS: 99202 ==

== ENCOUNTER 2024-08-11 07:23 | Outpatient (REF) | payer OTHER, SELFPAY ==
[2024-08-11 09:58] LABS: MANUAL DIFF FLAG NO
[2024-08-11 10:13] LABS: Basophils Absolute Auto 0.1 X10*3/uL (0.0-0.2); Basophils Percent Auto 0.7 % (0-2); Eosinophils Absolute Auto 0.2 X10*3/uL (0.0-0.4); Eosinophils Percent Auto 1.4 % (0-4); Hematocrit 45.1 % (37.0-47.0); Imm Gran Abs Auto 0.04 X10*3/uL (0.00-0.03); Imm Gran Pct Auto 0.3 % (0.0-0.4); Lymphocytes Absolute Auto 2.5 X10*3/uL (1.2-4.9); Lymphocytes Percent Auto 20.9 % (20-40); Mean Corpuscular HGB Conc 33.3 g/dl (31.0-35.0); Mean Corpuscular Hemoglobin 30.7 pg (27.0-33.0); Mean Corpuscular Volume 92.4 fL (80.0-98.0); Mean Platelet Volume 11.5 fL (9.4-12.3); Monocytes Absolute Auto 0.8 X10*3/uL (0.1-1.2); Monocytes Percent Auto 7.1 % (2-11); Neutrophils Absolute Auto 8.2 x10*3/uL (2.0-8.3); Neutrophils Percent Auto 69.6 % (45-73); Platelet Count 312 X10*3/uL (160-400); Red Blood Count 4.88 X10*6/uL (4.20-5.50); Red Cell Distribution Width 13.9 % (11.0-16.0); White Blood Count 11.8 X10*3/uL (4.8-10.8)
[2024-08-11 10:20] LABS: Estimated Average Glucose 103 mg/dL; Hemoglobin A1C 128.1871 umol/L; Hemoglobin A1c % 5.2 % (<6.0); Total Hemoglobin (HGBA1C) 3856.1334 umol/L
[2024-08-11 10:55] LABS: Erythrocyte Sedimentation Rate 6 MM/HR (0-20)
[2024-08-11 11:11] LABS: Alanine Aminotransferase 27 U/L (0-31); Albumin Level 4.4 g/dL (3.5-5.0); Alkaline Phosphatase 69 U/L (39-117); Anion Gap 12 (12-20); Aspartate Amino Transferase 20 U/L (5-31); Bilirubin Total 0.4 mg/dL (0.0-1.0); Blood Urea Nitrogen 12 mg/dL (9-16); Calcium 9.4 mg/dL (8.4-10.2); Carbon Dioxide 23 mmol/L (22-29); Chloride 110 mmol/L (96-108); Cholesterol 217 mg/dL (<200); Estimated Glomerular Filt Rate > 60; Glucose Random 78 mg/dL (60-115); HDL Cholesterol 74 mg/dL (>40); Iron 39 mcg/dL (30-160); LDL Cholesterol Calculated 120 mg/dL (<100); Percent Iron Saturation 15 % (15-50); Potassium 4.1 mmol/L (3.3-5.1); Sodium 141 mmol/L (135-145); Total Iron Binding Capacity 266 mcg/dL (228-428); Total Protein 8.2 g/dL (6.5-8.0); Triglycerides 118 mg/dL (<150); Unsaturated Iron Binding 227 ug/dL
[2024-08-11 11:21] LABS: Ferritin 317 ng/mL (10-250); TSH reflex Free T4 0.79 uIU/mL (0.32-4.0)
[2024-08-11 11:25] LABS: Folate 16.2 ng/mL (> or = 4.0); Vitamin B12 926 pg/mL (200-900)
[2024-08-11 11:59] LABS: Reflex LDLD? No
[2024-08-15 09:09] LABS: CRP High Sensitivity 7.9 mg/L
[2024-08-15 16:02] LABS: Vitamin D 25-OH, D2 <4 ng/mL; Vitamin D 25-OH, D3 23 ng/mL; Vitamin D 25-OH, Total 23 ng/mL (30-100)
== END 2024-08-11 07:24 | disposition home or self-care (01) ==
LOC: HO.LAB 07:23
PROVIDERS: Visit Provider Nurse Practitioner Family
DX: D50.9 Iron deficiency anemia, unspecified (principal); R53.83 Other fatigue; R20.2 Paresthesia of skin; Z68.43 Body mass index [BMI] 50.0-59.9, adult; G25.81 Restless legs syndrome; R79.82 Elevated C-reactive protein (CRP); G43.E09 Chronic migraine with aura, not intractable, without status migrainosus; R06.83 Snoring; G47.19 Other hypersomnia
CPT/HCPCS: 36415; 80053; 80061; 82306; 82607; 82728; 82746; 83036; 83540; 84443; 85025; 85652; 86141; 99212

== ENCOUNTER 2024-08-11 07:23 | Outpatient (AMB) | payer OTHER, SELFPAY ==
[2024-08-11 07:45] VITALS: BP 116/72; PULSE 81; O2SAT 100; BMI 48.5
--- NOTE | 2024-08-11 07:45 | A.OFFVIS_ITS ---
Vital Signs 08/11/24 07:45 Height 5 ft Weight 248 lb 4 oz BMI 48.5 BP 116/72 Pulse 81 Pulse Source Pulse Oximeter Pulse Oximetry (%) 100 Oxygen Delivery Method Room Air Intake Visit Reasons: Follow up 3mo Intake Note: Patient present for follow up Migraine. Patient states she has not been taking Sumatriptan as it is making her groggy/loopy Allergies No Known Allergies [No Known Allergies*] Allergy (Verified 08/11/24 07:48) Medication List - Last Reconciled 08/11/24 by DOE Pinto magnesium oxide 400 mg PO BEDTIME 30 days naratriptan take 1/2 - 1 tab at onset of headache; if no relief may repeat 1 tab after at least 4 hrs; max = 2 tabs/24 hrs orally PRN; 30 days riboflavin (vitamin B2) 400 mg PO DAILY 30 days topiramate 1 tab qam x's 1 wk, then 2 tabs qam x's 1 wk, then 3 tabs qam x's 1 wk, then 4 tabs qam orally .; (continue topiramate 100mg qhs) 30 days topiramate 100 mg PO BEDTIME 30 days HPI Comments Details: Right-handed 44-yr-old female presents for f/u of worsening chronic migraine type headache and sleep difficulties. Pt reports her headaches are a little bit better. The headache is still a pressure which starts in the back of her head, and moves into the right retroorbital and periorbital eye region, becomes right frontal/wayne-orbital pounding and throbbing. Associated symptoms: photophobia, phonophobia, osmophobia, nausea, once had spinning dizziness, not right in space dizziness, lightheadedness, fatigue, cognitive difficulties, activity intolerance, watery eyes, hands become tingling and cold, right side of face/eye- altered sensation/numbness.. The headache is worse when standing or bending over. No longer having daily headache, but having more headaches days than not in a month. The headaches last days now instead of weeks. She was able to start and increase the topiramate up to 100 mg q.h.s.. She feels the riboflavin, magnesium, topiramate has helped some- and is tolerating it well. Pt tried Sumatriptan, however it was ineffective and makes her feel weird and loopy. She continues to endorse sleep difficulties- Snoring, Excessive daytime sleepiness, Fatigue, Restless sleep, Restless legs- sometimes can be bothersome, urge to move, has to get up and walk around. Endorses brief ringing tinnitus x's 2, Denies interval vision changes, pulsatile tinnitus. Right-handed 44-yr-old female presents for new pt evaluation of headache disorder per referral from PCP. Pt reports she has had headaches since childhood which have been worsening and changing earlier this year without known cause. She has daily headaches for some time, but this intensified and has had stronger daily headaches and now more pressure and right facial numbness sensation w/ her migraine attacks since the beginning of the year. She has not seen neurology before. She is hoping to understand the cause of her migraine and head pressure s/s. PMH and ROS are notable for:? General: fatigue, KALE- has needed transfusions, intentional wt loss- through diet. Vision- vision may be blurry at times w/wo headache. Musculoskeletal disorders or injury: chronic back issues Mood d/o: Anxiety- feels well managed CV: has had pre-syncopal feeling more so when anemic GI d/o: [employer]: Menses is now regular- has h/o menorrhagia. Family history of migraine or other headache disorder: her mom had a benign brain tumor. Pertinent denials include: Tinnitus or whooshing tinnitus. History of concussion/head injury, Respiratory d/o, CV disease, Clotting or hematology d/o, Endocrine d/o, metabolic d/o, History of seizure, syncope, or drop attacks, constipation. Lifestyle considerations: Sleep routine: Usual sleep routine: varies d/t work Sleep difficulties: sometimes. Endorses: Snoring, Excessive daytime sleepiness, Fatigue, Restless sleep, Restless legs- sometimes can be bothersome, urge to move, has to get up and walk around. Caffeine use: has been decreasing use- 1-2 cups per day Substance use: none Exercise:?tries. 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 Not currently sexually active. Headache questionnaire:? Previous work-up: October 2023, Head CT- read as normal. Last eye exam- Typical headache characteristics: Prodrome symptoms: fatigue Aura: Once or twice has seen little white dots before the headache Pain intensity: moderate to severe Location, quality, characteristics: Pressure starts in the back of her head, and moves into the right retroorbital and periorbital eye region, becomes right frontal/wayne-orbital pounding and throbbing. Associated symptoms: photophobia, phonophobia, osmophobia, nausea, once had spinning dizziness, not right in space dizziness, lightheadedness, fatigue, cognitive difficulties, activity intolerance, watery eyes, hands become tingling and cold, right side of face/eye- altered sensation/numbness- which is a newer symptom. Postdrome: lingers Triggers: no known triggers. WOLFE worsens if bends over. Time of day: No specific time of day Duration and Frequency: Almost daily. An attack can last days to weeks. How does headache impact your life? Has had to miss to work and has had 3 ER visits since October 2023. Current acute medication use/interventions: Excedrin 2 tabs almost daily, Ibuprofen 600mg about once a week, Tylenol 1000mg every other day. Current preventative medication use: None Non-pharmacological interventions: Rest, migraine cooling cap. [facility] Medical History Elevated C-reactive protein (CRP) Anemia Social History Patient Tobacco Use Status: Never used Tobacco Physical Exam Vital Signs: Last Vital Signs Pulse 81 08/11/24 07:45 BP 116/72 08/11/24 07:45 Pulse Ox 100 08/11/24 07:45 Oxygen Delivery Method Room Air 08/11/24 07:45 BMI result Body Mass Index 48.5 Const Orientation/consciousness: patient oriented x3 Resp Effort & Inspection: normal respiratory effort and able to speak in complete sentences Neuro General: patient oriented x3 Cranial nerves: Yes CN's II-XII intact bilaterally (w/ very mild right sided facial assymetry), Yes Bilaterally intact EOM present and Yes Nystagmus not present Cognition (Neuro): normal cognition Gait exam (Neuro): Normal gait present Motor exam (neuro): 5/5 motor strength present throughout Pupils: Normal pupillary reactivity/response: bilateral Psych Appearance: grossly normal Mental Status: mental status grossly normal Speech and movement: Normal speech and movement present Affect: normal affect Attitude: cooperative Thought process: Normal thought process present Assessment & Plan Assessment & Plan (1) Worsening headaches: Comment: Increased frequency, intensity, and new symptoms of pressure, right facial numbness/altered sensation Code(s): R51.9 - Headache, unspecified Category: Medical (2) Chronic migraine with aura: Comment: sensory aura s/s- cold/tingling hands Code(s): G43.E09 - Chronic migraine with aura, not intractable, without status migrainosus Category: Medical (3) Snoring: Code(s): R06.83 - Snoring Category: Medical (4) Excessive daytime sleepiness: Comment: ESS 10 Code(s): G47.19 - Other hypersomnia Category: Medical (5) BMI 50.0-59.9, adult: Code(s): Z68.43 - Body mass index [BMI] 50.0-59.9, adult Category: Medical (6) Restless leg syndrome: Code(s): G25.81 - Restless legs syndrome Category: Medical (7) Paresthesia: Code(s): R20.2 - Paresthesia of skin Category: Medical (8) Fatigue: Code(s): R53.83 - Other fatigue Category: Medical Plan As pt again has health insurance, pt is advised to undergo: Eye exam to assess for papilledema and visual field testing Brain MRI w/wo to assess for secondary etiologies of severe frequent headache w/ right facial paresthesias/numbness. In-lab PSG to assess for sleep apnea and PLMS. Labs- for common etiologies of worsening headaches, paresthesias, and RLS s/s. For overall headache management: * Optimize good self-care, including but not limited to maintaining a healthy diet, adequate fluid intake, adequate sleep, and engaging in regular physical activity. * Track headaches, especially after any treatment regimen changes. Migraine [employer]di[employer] is one of many headache tracking apps. * Information shared on non-pharmacological interventions which may help to alleviate headache attack burden. For light sensitivity: Patient may benefit from trying blue light filtering glasses, green glasses, green light therapy. Avoiding wearing sunglasses inside. For sound sensitivity: Patent may benefit from trying noise cancellation ear plugs. Neuromodulation devices, which can be used alone or with pharmacological treatment. * Continue to optimize sleep hygiene, information previously shared on sleep education resources, specifically resource for shift work sleep d/o's. For acute headache treatment: Stop Sumatriptan 50mg and 100mg- ineffective and not tolerated (causes loopiness and weird feeling). Trial Naratriptan 2.5mg tab, 1/2 - 1 tab (1.25-2.5mg) at onset of headache, may repeat in 4 hours. Max of 2 tabs (5mg) per 24 hours. May adjunct with OTC Tylenol 650mg every 4 hours, Ibuprofen (liquigel) 600mg every 6 hours, or Naproxen (liquigel) 440mg every 12 hrs as needed. Potential adverse effects of triptans, include but are not limited to nausea, fatigue, chest tightness/tingling (usually passes within a few minutes), medication overuse headaches. Previous acute migraine medication trials: Excedrin- ineffective. Sumatriptan 50mg and 100mg tab- ineffective and not tolerated (causes loopiness and weird feeling). Acute migraine medication contraindications: None at this time Future consideration: gepant For headache prevention medication: Preventative medications should be taken routinely as prescribed for best effect, it may take several weeks for full effect to take effect. Continue Riboflavin 400mg qam Continue Magnesium 400mg qhs Increase topiramate from 100 mg q.h.s. to: Topiramate 25 mg in a.m. and 100 mg q.h.s. x1 week Then, topiramate 50 mg in a.m. and 100 mg q.h.s. x1 week Then, topiramate 75 mg in a.m. and 100 mg q.h.s. x1 week Then, topiramate 100 mg b.i.d. Potential adverse effects of Topiramate, include but are not limited to fatigue, cognitive changes, paresthesias (tingling), vision changes, kidney stones. Previous migraine prevention medication trials: None at this time Migraine prevention medication contraindications: None at this time Will follow-up upon review of above and patient to follow-up in clinic in 6 months or sooner prn. Medications: New naratriptan take 1/2 - 1 tab at onset of headache; if no relief may repeat 1 tab after at least 4 hrs; max = 2 tabs/24 hrs orally PRN; 30 days 12 tabs 6RF migraine headache topiramate 100 mg PO BEDTIME 30 days 30 tabs 6RF Changed From topiramate 1 tab qhs x's 1 wk, then 2 tabs qhs x's 1 wk, then 3 tabs qhs x's 1 wk, then 4 tabs qhs orally bedtime; 30 days 120 tabs 3RF To topiramate 1 tab qam x's 1 wk, then 2 tabs qam x's 1 wk, then 3 tabs qam x's 1 wk, then 4 tabs qam orally .; (continue topiramate 100mg qhs) 30 days 120 tabs 3RF Discontinued sumatriptan succinate Discontinued Reason: Doctor's Order (0.5 - 1 x 100 mg) 50 - 100 mg orally at onset of headache, may repeat in 2 hrs PRN; max 2 tabs per day or 4 tabs/week (may take with Ibuprofen) 30 days 12 tabs 6RF migraine headache Coding Level of Care Code Est Pt Level 4 (53898) Diagnoses Worsening headaches R51.9 Chronic migraine with aura G43.E09 Snoring R06.83 Excessive daytime sleepiness G47.19 BMI 50.0-59.9, adult Z68.43 Restless leg syndrome G25.81 Paresthesia R20.2 Fatigue R53.83
== END 2024-08-11 08:29 | disposition home or self-care (01) ==
PROVIDERS: Visit Provider Nurse Practitioner Family
DX: G43.E09 Chronic migraine with aura, not intractable, without status migrainosus (principal); R06.83 Snoring; G47.19 Other hypersomnia; Z68.43 Body mass index [BMI] 50.0-59.9, adult; G25.81 Restless legs syndrome; R20.2 Paresthesia of skin; R53.83 Other fatigue
CPT/HCPCS: 99214

== ENCOUNTER 2024-08-14 08:52 | Outpatient (REF) | payer OTHER, SELFPAY ==
--- NOTE | ~2024-08-14 | MR_ITS ---
EXAMINATION: MR BRAIN WITHOUT AND WITH CONTRAST CLINICAL INFORMATION: Headache COMPARISON: Correlated to CT dated October 27, 2023 demonstrated no gross abnormality. TECHNIQUE: Multiplanar, multisequence MRI of the brain was obtained before and after the intravenous administration of 10.0 mL (Gadavist) without reported immediate complications.. FINDINGS: No restricted diffusion. No acute intracranial hemorrhage, mass effect, midline shift, hydrocephalus or herniation. Briceno-white matter differentiation is normal. Posterior cranial fossa contents demonstrate no acute intracranial hemorrhage or gross masses. No abnormal enhancement in the intra-axial or the extra-axial compartment. Flow-void signal within the main cerebral vessels is normal. Sellar/suprasellar region demonstrated no gross masses. 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 Craniocervical junction is intact and normal. Midline structures are normal. Probable high riding right internal jugular bulb. MR/MR head/brain wo/w con IMPRESSION: No acute or structural brain abnormality or abnormal enhancement. Probable high riding right internal jugular bulb. Electronically signed by: Gaurav Jarrell MD 08/14/2024 12:01 PM JEREMIA[facility]
[2024-08-14] MEDS: gadobutroL 10 ML VIAL IVPUSH (09:54)
== END 2024-08-14 08:53 | disposition home or self-care (01) ==
LOC: HO.MRI 08:52
PROVIDERS: Visit Provider Nurse Practitioner Family
DX: R51.9 Headache, unspecified (principal); H53.9 Unspecified visual disturbance; R20.2 Paresthesia of skin
CPT/HCPCS: 70553; A9585

== ENCOUNTER → 2024-08-14 09:00 | Outpatient (BNV) | payer OTHER, SELFPAY | PROVIDERS: Visit Provider Radiology Diagnostic Radiology | DX: R51.9 Headache, unspecified (principal) | CPT/HCPCS: 70553 ==

== ENCOUNTER 2024-10-06 12:41 | Emergency (ER) | payer OTHER, SELFPAY ==
[2024-10-06 13:17] VITALS: BP 141/71; PULSE 80; RESP 18; TEMP 36.5; O2SAT 100; BMI 48.2
--- NOTE | 2024-10-06 14:15 | ED.GENADULT ---
HPI - General Adult General Chief complaint: Headache Stated complaint: Migraine Time Seen by Provider: 10/06/24 16:38 Source: patient and old records reviewed Mode of arrival: ambulatory Limitations: no limitations History of Present Illness ED Provider: ROOSEVELT ZULUAGA narrative: 44 yo female with chronic migraines who has a neurologist this Month and start of October she has appointment for CT scans and LP under fluoro. She is taking topamax, magnesium, sumatriptan but today it feels worse she has dizziness, nausea and tension pain on the R side of her head. No thinners, no fevers, no trauma. She tried her usual medications without relief. No vision changes reported MD complaint: migraine Onset (ago): month(s) Location: head Radiation: non-radiation Severity: moderate Quality: aching Pain Consistency: constant Relieving factors: rest Exacerbating factors: other (light, noise) Associated symptoms: nausea/vomiting Treatments prior to arrival: none Related Data Previous Rx's ?Medication ?Instructions ?Recorded magnesium oxide 400 mg (241.3 mg 400 mg PO BEDTIME 30 days #30 tabs 05/12/24 magnesium) tablet riboflavin (vitamin B2) 400 mg 400 mg PO DAILY 30 days #30 tabs 05/12/24 tablet naratriptan 2.5 mg tablet See Rx Instructions PO .COMPLEX 08/11/24 PRN migraine headache 30 days #12 tabs topiramate 100 mg tablet 100 mg PO BEDTIME 30 days #30 tabs 08/11/24 topiramate 25 mg tablet See Rx Instructions PO .COMPLEX 30 08/11/24 days #120 tabs cholecalciferol (vitamin D3) 1,250 1,250 mcg PO QWEEK 12 days #12 caps 08/19/24 mcg (50,000 unit) capsule [id number]-[id number]-[id number] 1 - 2 tab PO Q4-6H PRN Post LP 09/05/24 50 mg-325 mg-40 mg tablet headache 7 days #28 tabs Allergies Allergy/AdvReac Type Severity Reaction Status Date / Time No Known Allergies Allergy Verified 10/06/24 13:20 [No Known Allergies*] Review of Systems Review of Systems: Constitutional : No Fever, No Chills, No Fatigue ENT/Mouth : No sore throat, No Rhinorrhea Eyes: No Eye Pain, No Swelling, No Redness Cardiovascular : No Chest Pain, No SOB, No Dyspnea on Exertion Respiratory : No Cough, No Sputum Gastrointestinal : pos Nausea, No Vomiting, No Diarrhea, No abdominal Pain Genitourinary : No Dysuria, No Urinary Frequency, No Hematuria, Musculoskeletal : No joint pain, No Myalgias, No Joint Swelling Skin : No Skin Lesions, No rash Neuro : No Weakness, No Numbness, No Dizziness, positive Headache Psych : No Anxiety/Panic, No Depression All other systems reviewed and are negative [facility] Past Medical History Attestation statement: The following information was validated with the patient. Source: old records reviewed Medical History Elevated C-reactive protein (CRP) Anemia Social History Social History (Reviewed 10/06/24 @ 17: by Cyn Katz DO) Patient Tobacco Use Status: Never used Tobacco Smoked in Last 30 Days: No Use of substances other than those prescribed or required for medical reasons: No Advance Directives: No Advance Directives Information Provided: No Do you have a plan to hurt others: No Plan Patient : No Physical Exam ED Vital Signs: Vital Signs - 24 hr 10/06/24 13:17 10/06/24 18:35 Temperature 97.7 F 98.4 F Pulse Rate 80 95 Respiratory Rate 18 16 Blood Pressure 141/71 H 140/67 H Pulse Oximetry 100 97 Oxygen Delivery Method Room Air Room Air BMI result Body Mass Index 48.2 Appearance: Alert. Oriented X3. No acute distress. Eyes: Pupils equal, round and reactive to light. ENT: Pharynx normal. Neck: Normal inspection. Neck supple. no meningeal symptoms CVS: Normal heart rate and rhythm. Pulses normal. Respiratory: No respiratory distress. Breath sounds normal. Abdomen: Soft and non-tender. Skin: Skin warm and dry. Normal skin color. Normal skin turgor. Extremities: No lower extremity edema. No calf ttp Neuro: Oriented X 3. No motor deficit. No sensory deficit. CN2-12 intact Course Course Course Narrative: RME: 44-year-old female presents to the ED for migraine exacerbation. Patient states no relief with the past 3 days. Patient has been followed by the neurologist. Patient has a scheduled outpatient CT scan and LP in October. Patient came today because pain not improving with migraine cocktail. Patient denies any slurred speech, facial droop or paralysis of extremities. NIH score is 0. labs/head CT scan ordered. Medications Administered Discontinued Medications Generic Name Dose Route Start Last Admin Trade Name Joseline PRN Reason Stop Dose Admin Ketorolac Tromethamine 15 mg 10/06/24 17:02 10/06/24 17:17 Ketorolac Tromethamine 15 Mg/Ml Vial IVPUSH 10/06/24 17:03 15 mg ONCE ONE Administration Lorazepam 0.5 mg 10/06/24 17:02 10/06/24 17:16 Lorazepam 2 Mg/Ml Vial IVPUSH 10/06/24 17:03 0.5 mg STAT STA Administration Prochlorperazine Edisylate 10 mg 10/06/24 17:02 10/06/24 17:16 Prochlorperazine Edisylate 10 Mg/2 Ml Vial IVPUSH 10/06/24 17:03 10 mg ONCE ONE Administration Medical Decision Making Medical Decision Making [facility] Narrative: 44 yo female with chronic migraines here with c/o headaches that have worsened with nausea and she overall has no neuro symptoms or signs of vision loss of end organ dysfunction at this time will treat migraine and if she feels better will DC with neurology follow up. Differential Diagnosis Differential Diagnoses: The differential diagnosis associated with the presentation includes migraine, tension headache Admission/Observation Consideration of admission/observation: Escalation of care including admission/observation considered feels better stable for DC Lab Data [facility] Lab Attestation statement: I reviewed the patient's lab results. 10/06/24 14:52 10/06/24 14:52 Labs: Lab Results 10/06/24 Range/Units 14:52 WBC 10.8 (4.8-10.8) X10*3/uL RBC 4.49 (4.20-5.50) X10*6/uL Hgb 14.1 (12.0-16.0) g/dl Hct 41.2 (37.0-47.0) % MCV 91.8 (80.0-98.0) fL MCH 31.4 (27.0-33.0) pg MCHC 34.2 (31.0-35.0) g/dl RDW 13.1 (11.0-16.0) % Plt Count 278 (160-400) X10*3/uL MPV 11.3 (9.4-12.3) fL Immature Gran % (Auto) 0.3 (0.0-0.4) % Neut % (Auto) 71.6 (45-73) % Lymph % (Auto) 20.0 (20-40) % George % (Auto) 6.5 (2-11) % Eos % (Auto) 1.0 (0-4) % Baso % (Auto) 0.6 (0-2) % Lymph # (Auto) 2.2 (1.2-4.9) X10*3/uL George # (Auto) 0.7 (0.1-1.2) X10*3/uL Eos # (Auto) 0.1 (0.0-0.4) X10*3/uL Baso # (Auto) 0.1 (0.0-0.2) X10*3/uL Abs Immat Gran (auto) 0.03 (0.00-0.03) X10*3/uL Absolute Neuts (auto) 7.8 (2.0-8.3) x10*3/uL Absolute Nucleated RBC 0.000 (0.0-0.012) X10*3/uL Nucleated RBC % (auto) 0.0 (0.0-0.2) /100WBC Sodium 139 (135-145) mmol/L Potassium 4.1 (3.3-5.1) mmol/L Chloride 109 H (96-108) mmol/L Carbon Dioxide 25 (22-29) mmol/L Anion Gap 9 L (12-20) BUN 13 (9-16) mg/dL Creatinine 0.79 (0.5-1.4) mg/dL Estim Creat Clear Calc 105.5 Estimated GFR > 60 Random Glucose 90 (60-115) mg/dL Calcium 9.4 (8.4-10.2) mg/dL Total Bilirubin 0.3 (0.0-1.0) mg/dL AST 18 (5-31) U/L ALT 19 (0-31) U/L Alkaline Phosphatase 72 (39-117) U/L Total Protein 7.3 (6.5-8.0) g/dL Albumin 4.0 (3.5-5.0) g/dL Beta HCG, Quant < 2 mIU/mL External Record Review External record reviewed: Inpatient record and Outpatient record Tests considered The following testing was considered but not selected: CT head but she has no concerning neuro features Prescription Management I considered prescription management with: Other Discharge Plan Discharge Clinical Impression: Migraine Qualifiers: Migraine type: unspecified Status migrainosus presence: with status migrainosus Intractability: intractable Qualified Code(s): G43.911 - Migraine, unspecified, intractable, with status migrainosus Patient Disposition: Home, Self-Care Instructions: Migraine Headache (ED) Additional Instructions: please rest and stay hydrated do not drive or operate heavy machinery until tomorow AM return for any worsening symptoms or concerns it is okay if you take your topiramate tonight Prescriptions: No Action cholecalciferol (vitamin D3) 1,250 mcg (50,000 unit) capsule 1,250 mcg PO QWEEK 12 Days Qty: 12 0RF magnesium oxide 400 mg (241.3 mg magnesium) tablet 400 mg PO BEDTIME 30 Days Qty: 30 6RF Rx Instructions: may hold for loose stools riboflavin (vitamin B2) 400 mg tablet 400 mg PO DAILY 30 Days Qty: 30 6RF naratriptan 2.5 mg tablet See Rx Instructions PO .COMPLEX PRN (Reason: migraine headache) 30 Days Qty: 12 6RF Rx Instructions: take 1/2 - 1 tab at onset of headache; if no relief may repeat 1 tab after at least 4 hrs; max = 2 tabs/24 hrs orally PRN; topiramate 100 mg tablet 100 mg PO BEDTIME 30 Days Qty: 30 6RF topiramate 25 mg tablet See Rx Instructions PO .COMPLEX 30 Days Qty: 120 3RF Rx Instructions: 1 tab qam x's 1 wk, then 2 tabs qam x's 1 wk, then 3 tabs qam x's 1 wk, then 4 tabs qam orally .; (continue topiramate 100mg qhs) [id number]-evzpoqvqghlkd-[id number] 50-325-40 mg tablet 1 - 2 tab PO Q4-6H MDD 6 tabs PRN (Reason: Post LP headache) 7 Days Qty: 28 0RF Interventions: ED Discharge Assessment Last Done: 10/06/24 18:35 Print Language: Scottish
[2024-10-06 14:57] LABS: MANUAL DIFF FLAG NO
[2024-10-06 15:00] LABS: Basophils Absolute Auto 0.1 X10*3/uL (0.0-0.2); Basophils Percent Auto 0.6 % (0-2); Eosinophils Absolute Auto 0.1 X10*3/uL (0.0-0.4); Hematocrit 41.2 % (37.0-47.0); Hemoglobin 14.1 g/dl (12.0-16.0); Imm Gran Abs Auto 0.03 X10*3/uL (0.00-0.03); Imm Gran Pct Auto 0.3 % (0.0-0.4); Lymphocytes Absolute Auto 2.2 X10*3/uL (1.2-4.9); Mean Corpuscular HGB Conc 34.2 g/dl (31.0-35.0); Mean Corpuscular Hemoglobin 31.4 pg (27.0-33.0); Mean Corpuscular Volume 91.8 fL (80.0-98.0); Mean Platelet Volume 11.3 fL (9.4-12.3); Monocytes Absolute Auto 0.7 X10*3/uL (0.1-1.2); Monocytes Percent Auto 6.5 % (2-11); Neutrophils Absolute Auto 7.8 x10*3/uL (2.0-8.3); Neutrophils Percent Auto 71.6 % (45-73); Platelet Count 278 X10*3/uL (160-400); Red Blood Count 4.49 X10*6/uL (4.20-5.50); Red Cell Distribution Width 13.1 % (11.0-16.0); White Blood Count 10.8 X10*3/uL (4.8-10.8)
[2024-10-06 15:13] LABS: Alanine Aminotransferase 19 U/L (0-31); Anion Gap 9 (12-20); Aspartate Amino Transferase 18 U/L (5-31); Bilirubin Total 0.3 mg/dL (0.0-1.0); Blood Urea Nitrogen 13 mg/dL (9-16); Calcium 9.4 mg/dL (8.4-10.2); Carbon Dioxide 25 mmol/L (22-29); Chloride 109 mmol/L (96-108); Creatinine Clr Calc Pharmacy 105.5; Estimated Glomerular Filt Rate > 60; Glucose Random 90 mg/dL (60-115); Potassium 4.1 mmol/L (3.3-5.1); Sodium 139 mmol/L (135-145); Total Protein 7.3 g/dL (6.5-8.0)
[2024-10-06 15:23] LABS: HCG Quantitative < 2 mIU/mL
[2024-10-06] MEDS: Prochlorperazine Edisylate 10 MG/2 ML VIAL IVPUSH (17:16)
[2024-10-06] MEDS: LORazepam 2 MG/ML VIAL 0.5 MG IVPUSH (17:16)
[2024-10-06] MEDS: Ketorolac Tromethamine 15 MG/ML VIAL IVPUSH (17:17)
[2024-10-06 17:18] LABS: Alkaline Phosphatase 72 U/L (39-117)
[2024-10-06 18:35] VITALS: BP 140/67; PULSE 95; RESP 16; TEMP 36.9; O2SAT 97
== END 2024-10-06 19:00 | disposition home or self-care (01) ==
PROVIDERS: Physician Assistant; Emergency Provider Emergency Medicine
DX: G43.911 Migraine, unspecified, intractable, with status migrainosus (principal)
CPT/HCPCS: 36415; 80053; 84702; 85025; 96374; 96375; 99284; J0737; J1885; J2060

== ENCOUNTER 2024-10-20 07:28 | Outpatient (REF) | payer OTHER, SELFPAY ==
--- NOTE | ~2024-10-20 | CT_ITS ---
EXAMINATION: CT TEMPORAL BONES. CLINICAL INFORMATION: Pulsatile tinnitus, unspecified ear.. COMPARISON: No priors. Correlated to MRI brain dated August 14, 2024. TECHNIQUE: Contiguous axial images through the temporal bones with bone algorithm. Sagittal and coronal reformatted images acquired. This CT examination was performed using dose optimization techniques as appropriate, variously including the following: *Automated exposure control *Adjustment of mA and/or kV according to patient size (this includes techniques or standardized protocols for targeted exams where dose is matched to indication/reason for exam; i.e. extremities or head) *Use of iterative reconstruction technique DLP: 1669 mGy centimeter. FINDINGS: RIGHT TEMPORAL BONE: External auditory canal, cartilage and osseous segments: Normal patency. No focal stenosis. No gross mass. Tympanic membrane: Not thickened. Tympanic cavity: Aerated. No focal mass/attenuation lesions or air-fluid levels. Tegmen tympani: Intact. Ossicles: Intact and articulating. Sinus tympanic: Aerated. Oval window and round window: Aerated. Facial fovea: Aerated. Cochlear and vestibule: Intact. Fallopian canal/facial nerve canal: Intact. Not enlarged. Cochlear and vestibular aqueducts: Not enlarged. Aditus at antrum, mastoid antrum and mastoid air cells: Aerated. No coalescent. No air-fluid levels. No gross soft tissue attenuation. Internal auditory canal: Intact. Jugular foramen: Intact. Normal anatomic location. Carotid canal: Intact. Temporomandibular joint: Intact. LEFT TEMPORAL BONE: External auditory canal, cartilage and osseous segments: Normal patency. No focal stenosis. No gross mass. Tympanic membrane: Not thickened. Tympanic cavity: Aerated. No focal mass/attenuation lesions or air-fluid levels. Tegmen tympani: Intact. Ossicles: Intact and articulating. Sinus tympanic: Aerated. Oval window and round window: Aerated. Facial fovea: Aerated. Cochlear and vestibule: Intact. Fallopian canal/facial nerve canal: Intact. Not enlarged. Cochlear and vestibular aqueducts: Not enlarged. Aditus at antrum, mastoid antrum and mastoid air cells: Aerated. No coalescent. No air-fluid levels. No gross soft tissue attenuation. Internal auditory canal: Intact. Jugular foramen: Intact. Normal anatomic location. Carotid canal: Intact. Temporomandibular joint: Intact. Ancillary findings: Mucosal thickening, right and to a lesser extent left maxillary sinus. Pneumatized petrous apices. CT/CT internal auditory canals BI IMPRESSION: Normal temporal bones: Electronically signed by: Gaurav Jarrell MD 10/20/2024 08:26 AM EDT RP
== END 2024-10-20 07:29 | disposition home or self-care (01) ==
LOC: HO.CT 07:28
PROVIDERS: Visit Provider Nurse Practitioner Family
DX: H93.A9 Pulsatile tinnitus, unspecified ear (principal); R90.89 Other abnormal findings on diagnostic imaging of central nervous system; H93.11 Tinnitus, right ear
CPT/HCPCS: 70480

== ENCOUNTER → 2024-10-20 07:29 | Outpatient (BNV) | payer OTHER, SELFPAY | PROVIDERS: Visit Provider Radiology Diagnostic Radiology | DX: H93.A1 Pulsatile tinnitus, right ear (principal) | CPT/HCPCS: 70480 ==

== ENCOUNTER → 2024-10-20 07:48 | Outpatient (REF) | payer OTHER, SELFPAY | LOC: HO.SL 07:48 | PROVIDERS: Visit Provider Nurse Practitioner Family | DX: R06.83 Snoring (principal); G47.10 Hypersomnia, unspecified | CPT/HCPCS: 95806 ==

== ENCOUNTER → 2024-10-20 08:12 | Outpatient (BNV) | payer OTHER, SELFPAY | PROVIDERS: Visit Provider Psychiatry & Neurology Neurology | DX: R06.83 Snoring (principal); G47.10 Hypersomnia, unspecified | CPT/HCPCS: 95806 ==

== ENCOUNTER 2024-10-28 09:10 | Day surgery (SDC) | payer OTHER, SELFPAY ==
--- NOTE | ~2024-10-28 | FL_ITS ---
EXAMINATION: XR LUMBAR PUNCTURE CLINICAL INFORMATION: R90.89 - Other abnormal findings on diagnostic imaging of central nervou... COMPARISON: None available. TECHNIQUE: Informed consent was obtained from the patient. Timeout was performed. Using fluoroscopic guidance, the L2-3 interlaminar space was identified, marked, and the skin prepped and draped in sterile fashion. Skin and subcutaneous tissues were anesthetized with 1% lidocaine. Subsequently, a 20-gauge Quincke spinal needle was advanced into the thecal sac, and clear CSF was noted at the needle hub. Opening pressure was measured at 14 cm H2O. Approximately 15 mL of clear CSF was obtained passively, and sent for laboratory analysis. The patient tolerated the procedure well. There were no immediate complications. 1 fluoroscopic spot image obtained. FLUOROSCOPY TIME: 10 seconds DOSE AREA PRODUCT: 18.2 dGy-m2 FL/FL guided lumbar puncture LP IMPRESSION: 1. Successful and uneventful L2-3 fluoroscopic guided lumbar puncture. 2. Opening pressure measured at 14 cm H2O. 3. 15 mL of CSF collected passively and sent for laboratory analysis. Electronically signed by: Ramon Mazariegos MD 10/28/2024 12:10 PM EDT
[2024-10-28 09:45] VITALS: BMI 48.5
[2024-10-28 10:01] LABS: UPreg QC Valid YES; Urine Pregnancy NEGATIVE (NEGATIVE)
[2024-10-28 10:03] VITALS: BP 137/92; PULSE 73; RESP 16; TEMP 36.3; O2SAT 97
[2024-10-28 10:10] LABS: MANUAL DIFF FLAG NO
[2024-10-28 10:16] LABS: Prothrombin Time 11.4 SEC (10.9-12.4)
[2024-10-28 10:19] LABS: Basophils Absolute Auto 0.1 X10*3/uL (0.0-0.2); Basophils Percent Auto 1.1 % (0-2); Eosinophils Absolute Auto 0.1 X10*3/uL (0.0-0.4); Eosinophils Percent Auto 1.3 % (0-4); Hematocrit 40.5 % (37.0-47.0); Hemoglobin 13.4 g/dl (12.0-16.0); Imm Gran Abs Auto 0.02 X10*3/uL (0.00-0.03); Imm Gran Pct Auto 0.3 % (0.0-0.4); Lymphocytes Absolute Auto 1.7 X10*3/uL (1.2-4.9); Lymphocytes Percent Auto 23.9 % (20-40); Mean Corpuscular HGB Conc 33.1 g/dl (31.0-35.0); Mean Corpuscular Hemoglobin 31.1 pg (27.0-33.0); Mean Platelet Volume 11.4 fL (9.4-12.3); Monocytes Absolute Auto 0.5 X10*3/uL (0.1-1.2); Monocytes Percent Auto 6.4 % (2-11); Neutrophils Absolute Auto 4.7 x10*3/uL (2.0-8.3); Platelet Count 247 X10*3/uL (160-400); Red Blood Count 4.31 X10*6/uL (4.20-5.50)
[2024-10-28 10:28] LABS: Anion Gap 10 (12-20); Blood Urea Nitrogen 14 mg/dL (9-16); Calcium 8.1 mg/dL (8.4-10.2); Carbon Dioxide 27 mmol/L (22-29); Chloride 109 mmol/L (96-108); Creatinine Clr Calc Pharmacy 113.1; Estimated Glomerular Filt Rate > 60; Glucose Random 95 mg/dL (60-115); Sodium 142 mmol/L (135-145)
[2024-10-28 11:35] VITALS: BP 121/76; PULSE 60; RESP 17; TEMP 36.8; O2SAT 100
[2024-10-28 12:05] VITALS: BP 122/64; PULSE 61; RESP 16; O2SAT 99
[2024-10-28 12:32] VITALS: BP 124/69; PULSE 64; RESP 18; TEMP 36.6; O2SAT 99
[2024-10-28 13:25] LABS: CSF Appearance Clear, Colorless; CSF Tube # 1
[2024-10-28 13:35] LABS: Glucose CSF 65 mg/dL; Total Protein CSF 39.2 mg/dL (15-45)
[2024-10-28 13:55] LABS: Appearance CSF CLEAR; CSF Monos 13 %; CSF Tube # 3; Color CSF COLORLESS; Lymphocytes CSF 87 %; Red Blood Cell CSF 0 MM*3; White Blood Cell CSF 1 MM*3
[2024-10-28 13:56] LABS: Appearance CSF CLEAR; CSF Tube # 1; Color CSF COLORLESS; Red Blood Cell CSF 0 MM*3; White Blood Cell CSF 2 MM*3
[2024-10-28 14:03] LABS: CSF Monos 8 %; Lymphocytes CSF 92 %
== END 2024-10-28 14:14 | disposition home or self-care (01) ==
PROVIDERS: Radiology Diagnostic Radiology; Visit Provider Nurse Practitioner Family
PROC: 009U3ZZ Drainage of Spinal Canal, Percutaneous Approach (ICD-10-PCS; CPT 62270; principal; 2024-10-28 11:00)
DX: R90.89 Other abnormal findings on diagnostic imaging of central nervous system (principal); G43.E09 Chronic migraine with aura, not intractable, without status migrainosus; H93.11 Tinnitus, right ear; G47.19 Other hypersomnia; G25.81 Restless legs syndrome; R06.83 Snoring; R53.83 Other fatigue; D50.9 Iron deficiency anemia, unspecified; K21.9 Gastro-esophageal reflux disease without esophagitis; R20.2 Paresthesia of skin; R79.82 Elevated C-reactive protein (CRP); Z79.899 Other long term (current) drug therapy
CPT/HCPCS: 36415; 62328; 80048; 81025; 82945; 84157; 85025; 85610; 87015; 87070; 87205; 89051; J2003

== ENCOUNTER → 2024-10-28 10:03 | Outpatient (BNV) | payer OTHER, SELFPAY | PROVIDERS: Visit Provider Radiology Diagnostic Radiology | DX: R90.89 Other abnormal findings on diagnostic imaging of central nervous system (principal) | CPT/HCPCS: 62328 ==

== ENCOUNTER 2024-10-30 14:01 | Emergency (ER) | payer OTHER, SELFPAY ==
--- NOTE | 2024-10-30 14:19 | ED_ITS ---
HPI - Headache General Chief Complaint: Headache Stated Complaint: Pressure In Head, Headaches Time Seen by Provider: 10/30/24 18:51 Source: patient, family and old records reviewed Mode of arrival: ambulatory Limitations: no limitations History of Present Illness ED Provider: ROOSEVELT ZULUAGA Narrative: 44 yo female with PMH of anemia and significant migraines has had normal MRI, [facility] imaging, just had LP on 10/28 opening pressure 14 and CSF studies are normal. Prior to the procedure she had her typical migraine it is still present. She has taken no medications for it. She notes it is there all the time not worse with standing. She cannot get comfortable. Pos photophobia and nausea. No trauma. She can move her neck. MD elicited complaint: headache and migraine Onset (ago): day(s) (3) Onset description: gradually Location: right, left, frontal, temporal and band-like Severity: severe Quality & Timing: throbbing and progressively worsening Exacerbating factors: light Relieving factors: nothing Context: occurred at rest Associated symptoms: nausea and photophobia Treatments prior to arrival: none Related Data Previous Rx's ?Medication ?Instructions ?Recorded magnesium oxide 400 mg (241.3 mg 400 mg PO BEDTIME 30 days #30 tabs 05/12/24 magnesium) tablet riboflavin (vitamin B2) 400 mg 400 mg PO DAILY 30 days #30 tabs 05/12/24 tablet naratriptan 2.5 mg tablet See Rx Instructions PO .COMPLEX 08/11/24 PRN migraine headache 30 days #12 tabs topiramate 100 mg tablet 100 mg PO BEDTIME 30 days #30 tabs 08/11/24 topiramate 25 mg tablet See Rx Instructions PO .COMPLEX 30 08/11/24 days #120 tabs cholecalciferol (vitamin D3) 1,250 1,250 mcg PO QWEEK 12 days #12 caps 08/19/24 mcg (50,000 unit) capsule [id number]-[id number]-[id number] 1 - 2 tab PO Q4-6H PRN Post LP 09/05/24 50 mg-325 mg-40 mg tablet headache 7 days #28 tabs cyclobenzaprine 10 mg tablet 10 mg PO TID PRN muscle spasm #20 10/30/24 tabs ondansetron 4 mg disintegrating 4 mg PO Q8H PRN nausea and 10/30/24 tablet vomiting #20 tabs Allergies Allergy/AdvReac Type Severity Reaction Status Date / Time No Known Allergies Allergy Verified 10/30/24 14:23 [No Known Allergies*] Review of Systems 2 Review of Systems: Constitutional : No Fever, No Chills, No Fatigue ENT/Mouth : No sore throat, No Rhinorrhea Eyes: No Eye Pain, No Swelling, No Redness Cardiovascular : No Chest Pain, No SOB, No Dyspnea on Exertion Respiratory : No Cough, No Sputum Gastrointestinal : pos Nausea, No Vomiting, No Diarrhea, No abdominal Pain Genitourinary : No Dysuria, No Urinary Frequency, No Hematuria, Musculoskeletal : No joint pain, No Myalgias, No Joint Swelling Skin : No Skin Lesions, No rash Neuro : No Weakness, No Numbness, No Dizziness, positive Headache All other systems reviewed and are negative [facility] Past Medical History Attestation statement: The following information was validated with the patient. Source: old records reviewed Medical History Elevated C-reactive protein (CRP) Anemia Surgical History H/O foot surgery Social History Social History Patient Tobacco Use Status: Never used Tobacco Smoked in Last 30 Days: No Use of substances other than those prescribed or required for medical reasons: No Advance Directives: No Advance Directives Information Provided: No Physical Exam 2 Vital Signs: Vital Signs: Last Vital Signs Temp 97.1 F 10/30/24 20:00 Pulse 62 10/30/24 20:00 Resp 16 10/30/24 20:00 BP 113/60 10/30/24 21:10 Pulse Ox 98 10/30/24 20:00 O2 Del Method Room Air 10/30/24 20:00 BMI result Body Mass Index 48.0 Appearance: Alert. Oriented X3. No acute distress. Eyes: Pupils equal, round and reactive to light. ENT: Pharynx normal. Neck: Normal inspection. Neck supple. no meningeal signs CVS: Normal heart rate and rhythm. Pulses normal. Respiratory: No respiratory distress. Breath sounds normal. Abdomen: Soft and nontender. Skin: Skin warm and dry. Normal skin color. Normal skin turgor. Extremities: No lower extremity edema. No calf ttp Neuro: Oriented X 3. No motor deficit. No sensory deficit. CN2-12 intact Course Course Course Narrative: This is an RME performed by Marilia John CNP: Additional HPI, ROS, PE not included below will be deferred to primary provider. 44 yo female with PMHx of anemia, migraines, presents to the ED due to 3 days of R sided headache and neck pain. Pain is exacerbated with head movement and is more severe than her typical migraine headaches. States she had spinal tap 2 days ago at [facility] to find origin of persistent pressure in head. Follows neurology at [facility] [place]. She has not reached out to office yet today. Reports the headache today is associated with nausea. Denies visual changes, Plan: labs, viral swabs Medications Administered Discontinued Medications Generic Name Dose Route Start Last Admin Trade Name Joseline PRN Reason Stop Dose Admin Diazepam 2.5 mg 10/30/24 20:51 10/30/24 21:20 Diazepam 10 Mg/2 Ml Cartridge IVPUSH 10/30/24 20:52 2.5 mg STAT STA Administration Diphenhydramine HCl 25 mg 10/30/24 19:00 10/30/24 19:28 Diphenhydramine Hcl 50 Mg/Ml Vial IVPUSH 10/30/24 19:01 25 mg ONCE ONE Administration Lactated Ringer's 1,000 mls @ 999 mls/hr 10/30/24 19:00 10/30/24 20:35 Lr IV 10/30/24 20:00 Infused .Q1H1M ONE Infusion Lactated Ringer's 1,000 mls @ 999 mls/hr 10/30/24 19:00 10/30/24 20:35 Lr IV 10/30/24 20:00 Infused .Q1H1M ONE Infusion Ketorolac Tromethamine 15 mg 10/30/24 19:00 10/30/24 19:28 Ketorolac Tromethamine 15 Mg/Ml Vial IVPUSH 10/30/24 19:01 15 mg ONCE ONE Administration Prochlorperazine Edisylate 10 mg 10/30/24 19:00 10/30/24 19:28 Prochlorperazine Edisylate 10 Mg/2 Ml Vial IVPUSH 10/30/24 19:01 10 mg ONCE ONE Administration Medical Decision Making Medical Decision Making MDM Narrative: 44 yo female with PMH of anemia and significant migraines here with c/o migraine prior to LP and now still present she has no red flags on exam - similar to prior headaches not worse with standing doubt post LP headache - will start on IVF x 2L, migraine cocktail. NO red flags to suggest SAH or STOCK SPECULATOR infection. Differential Diagnosis Differential Diagnoses: The differential diagnosis associated with the presentation includes migraine no pain with standing or moving doubt post LP headache no meningeal signs doubt STOCK SPECULATOR infection Admission/Observation Consideration of admission/observation: Escalation of care including admission/observation considered improved stable for DC Lab Data [facility] Lab Attestation statement: I reviewed the patient's lab results. 10/30/24 14:41 10/30/24 14:41 Labs: Lab Results 10/30/24 Range/Units 14:41 WBC 8.2 (4.8-10.8) X10*3/uL RBC 4.62 (4.20-5.50) X10*6/uL Hgb 14.2 (12.0-16.0) g/dl Hct 43.1 (37.0-47.0) % MCV 93.3 (80.0-98.0) fL MCH 30.7 (27.0-33.0) pg MCHC 32.9 (31.0-35.0) g/dl RDW 13.0 (11.0-16.0) % Plt Count 269 (160-400) X10*3/uL MPV 11.2 (9.4-12.3) fL Immature Gran % (Auto) 0.2 (0.0-0.4) % Neut % (Auto) 64.9 (45-73) % Lymph % (Auto) 25.5 (20-40) % Ada % (Auto) 6.6 (2-11) % Eos % (Auto) 1.8 (0-4) % Baso % (Auto) 1.0 (0-2) % Lymph # (Auto) 2.1 (1.2-4.9) X10*3/uL Ada # (Auto) 0.5 (0.1-1.2) X10*3/uL Eos # (Auto) 0.2 (0.0-0.4) X10*3/uL Baso # (Auto) 0.1 (0.0-0.2) X10*3/uL Abs Immat Gran (auto) 0.02 (0.00-0.03) X10*3/uL Absolute Neuts (auto) 5.3 (2.0-8.3) x10*3/uL Absolute Nucleated RBC 0.000 (0.0-0.012) X10*3/uL Nucleated RBC % (auto) 0.0 (0.0-0.2) /100WBC Sodium 138 (135-145) mmol/L Potassium 3.7 (3.3-5.1) mmol/L Chloride 107 (96-108) mmol/L Carbon Dioxide 26 (22-29) mmol/L Anion Gap 9 L (12-20) BUN 7 L (9-16) mg/dL Creatinine 0.87 (0.5-1.4) mg/dL Estim Creat Clear Calc 95.6 Estimated GFR > 60 Random Glucose 86 (60-115) mg/dL Calcium 9.0 D (8.4-10.2) mg/dL Total Bilirubin 0.4 (0.0-1.0) mg/dL AST 14 (5-31) U/L ALT 23 (0-31) U/L Alkaline Phosphatase 70 (39-117) U/L Total Protein 7.1 (6.5-8.0) g/dL Albumin 4.0 (3.5-5.0) g/dL Influenza Type A (PCR) NEGATIVE (Negative) Influenza Type B (PCR) NEGATIVE (Negative) RSV RNA Qual (PCR) NEGATIVE (Negative) SARS-CoV-2 RNA (RT-PCR) NEGATIVE (Negative) Independent Historian Clinical information obtained from an independent historian. History obtained from or confirmed by: Parent External Record Review External record reviewed: Outpatient record, Prior outpatient labs and Prior outpatient radiology Prescription Management I considered prescription management with: Other Discharge Plan Discharge Clinical Impression: Migraine Qualifiers: Migraine type: unspecified Status migrainosus presence: without status migrainosus Intractability: not intractable Qualified Code(s): G43.909 - Migraine, unspecified, not intractable, without status migrainosus Patient Disposition: Home, Self-Care Instructions: Migraine Headache (ED) Additional Instructions: labs stable rest and stay hydrated return for any worsening symptoms or concerns. Prescriptions: New cyclobenzaprine 10 mg tablet 10 mg PO TID PRN (Reason: muscle spasm) Qty: 20 0RF ondansetron 4 mg tablet,disintegrating 4 mg PO Q8H PRN (Reason: nausea and vomiting) Qty: 20 0RF No Action cholecalciferol (vitamin D3) 1,250 mcg (50,000 unit) capsule 1,250 mcg PO QWEEK 12 Days Qty: 12 0RF magnesium oxide 400 mg (241.3 mg magnesium) tablet 400 mg PO BEDTIME 30 Days Qty: 30 6RF Rx Instructions: may hold for loose stools riboflavin (vitamin B2) 400 mg tablet 400 mg PO DAILY 30 Days Qty: 30 6RF naratriptan 2.5 mg tablet See Rx Instructions PO .COMPLEX PRN (Reason: migraine headache) 30 Days Qty: 12 6RF Rx Instructions: take 1/2 - 1 tab at onset of headache; if no relief may repeat 1 tab after at least 4 hrs; max = 2 tabs/24 hrs orally PRN; topiramate 100 mg tablet 100 mg PO BEDTIME 30 Days Qty: 30 6RF topiramate 25 mg tablet See Rx Instructions PO .COMPLEX 30 Days Qty: 120 3RF Rx Instructions: 1 tab qam x's 1 wk, then 2 tabs qam x's 1 wk, then 3 tabs qam x's 1 wk, then 4 tabs qam orally .; (continue topiramate 100mg qhs) [id number]-tjfodiajnxppo-jqcc 50-325-40 mg tablet 1 - 2 tab PO Q4-6H MDD 6 tabs PRN (Reason: Post LP headache) 7 Days Qty: 28 0RF Print Language: British
[2024-10-30 14:21] VITALS: BP 127/62; PULSE 69; RESP 18; TEMP 36.6; O2SAT 100; BMI 48.0
[2024-10-30 14:46] LABS: MANUAL DIFF FLAG NO
[2024-10-30 14:48] LABS: Basophils Absolute Auto 0.1 X10*3/uL (0.0-0.2); Eosinophils Absolute Auto 0.2 X10*3/uL (0.0-0.4); Eosinophils Percent Auto 1.8 % (0-4); Hematocrit 43.1 % (37.0-47.0); Hemoglobin 14.2 g/dl (12.0-16.0); Imm Gran Abs Auto 0.02 X10*3/uL (0.00-0.03); Imm Gran Pct Auto 0.2 % (0.0-0.4); Lymphocytes Absolute Auto 2.1 X10*3/uL (1.2-4.9); Lymphocytes Percent Auto 25.5 % (20-40); Mean Corpuscular HGB Conc 32.9 g/dl (31.0-35.0); Mean Corpuscular Hemoglobin 30.7 pg (27.0-33.0); Mean Corpuscular Volume 93.3 fL (80.0-98.0); Mean Platelet Volume 11.2 fL (9.4-12.3); Monocytes Absolute Auto 0.5 X10*3/uL (0.1-1.2); Monocytes Percent Auto 6.6 % (2-11); Neutrophils Absolute Auto 5.3 x10*3/uL (2.0-8.3); Neutrophils Percent Auto 64.9 % (45-73); Platelet Count 269 X10*3/uL (160-400); Red Blood Count 4.62 X10*6/uL (4.20-5.50); White Blood Count 8.2 X10*3/uL (4.8-10.8)
[2024-10-30 15:03] LABS: Alanine Aminotransferase 23 U/L (0-31); Alkaline Phosphatase 70 U/L (39-117); Anion Gap 9 (12-20); Aspartate Amino Transferase 14 U/L (5-31); Bilirubin Total 0.4 mg/dL (0.0-1.0); Blood Urea Nitrogen 7 mg/dL (9-16); Carbon Dioxide 26 mmol/L (22-29); Chloride 107 mmol/L (96-108); Creatinine Clr Calc Pharmacy 95.6; Estimated Glomerular Filt Rate > 60; Glucose Random 86 mg/dL (60-115); Potassium 3.7 mmol/L (3.3-5.1); Sodium 138 mmol/L (135-145); Total Protein 7.1 g/dL (6.5-8.0)
[2024-10-30 15:28] LABS: Influenza A PCR NEGATIVE (Negative); Influenza B PCR NEGATIVE (Negative); Resp Syncy Virus RNA Qual PCR NEGATIVE (Negative); SARS COV2 PCR INHOUSE NEGATIVE (Negative)
[2024-10-30 17:43] VITALS: BP 132/67; PULSE 63; RESP 18; TEMP 36.6; O2SAT 99
[2024-10-30] MEDS: Prochlorperazine Edisylate 10 MG/2 ML VIAL IVPUSH (19:28)
[2024-10-30] MEDS: Lactated Ringers 1,000 ML 999 ML IV ×2 (19:28)
[2024-10-30] MEDS: diphenhydrAMINE HCL 50 MG/ML VIAL 25 MG IVPUSH (19:28)
[2024-10-30] MEDS: Ketorolac Tromethamine 15 MG/ML VIAL IVPUSH (19:28)
[2024-10-30 20:00] VITALS: BP 105/49; PULSE 62; RESP 16; TEMP 36.2; O2SAT 98
[2024-10-30 21:10] VITALS: BP 113/60
[2024-10-30] MEDS: diazePAM 10 MG/2 ML CARTRIDGE 2.5 MG IVPUSH (21:20)
[2024-10-30 22:11] VITALS: BP 110/51; PULSE 71; RESP 16; TEMP 36.7; O2SAT 100
[2024-10-30 22:30] VITALS: BP 110/51; PULSE 71; RESP 16; TEMP 36.7; O2SAT 100
== END 2024-10-30 22:30 | disposition home or self-care (01) ==
PROVIDERS: Nurse Practitioner Family; Emergency Provider Emergency Medicine
DX: G43.909 Migraine, unspecified, not intractable, without status migrainosus (principal); Z03.818 Encounter for observation for suspected exposure to other biological agents ruled out; Z79.899 Other long term (current) drug therapy
CPT/HCPCS: 0241U; 80053; 85025; 96361; 96374; 96375; 99284; 99285; J0737; J1200; J1885; J3360; J7120

== ENCOUNTER → 2024-11-23 19:30 | Outpatient (REF) | payer OTHER, SELFPAY | LOC: HO.SL 19:30 | PROVIDERS: Visit Provider Nurse Practitioner Family | DX: R06.83 Snoring (principal); G47.19 Other hypersomnia; G25.81 Restless legs syndrome | CPT/HCPCS: 95810 ==

== ENCOUNTER → 2024-11-23 19:30 | Outpatient (BNV) | payer OTHER, SELFPAY | PROVIDERS: Visit Provider Psychiatry & Neurology Neurology | DX: R06.83 Snoring (principal); G47.19 Other hypersomnia | CPT/HCPCS: 95810 ==

== ENCOUNTER 2025-02-15 07:53 | Outpatient (AMB) | payer OTHER, SELFPAY ==
--- NOTE | 2025-02-15 07:55 | A.OFFVIS_ITS ---
Vital Signs 02/15/25 07:59 Height 5 ft Weight 232 lb 4 oz BMI 45.4 BP 102/70 Blood Pressure Location Rt brachial Position Sitting Pulse 84 Pulse Source Pulse Oximeter Pulse Oximetry (%) 99 Oxygen Delivery Method Room Air Intake Visit Reasons: 6 mo follow up Intake Note: Patient presents 6 month follow up for Chronic migraines Implement Mechanic Required: No Accompanied by: Self / Same As Patient Allergies No Known Allergies (No Known Allergies*) Allergy (Verified 02/15/25 07:56) Medication List - Last Reconciled 02/15/25 by ODE Pinto magnesium oxide 400 mg PO BEDTIME 30 days naratriptan take 1/2 - 1 tab at onset of headache; if no relief may repeat 1 tab after at least 4 hrs; max = 2 tabs/24 hrs orally PRN; 30 days riboflavin (vitamin B2) 400 mg PO DAILY 30 days topiramate 100 mg PO BID 30 days HPI Comments Details: Right-handed 44-yr-old female presents for f/u of worsening chronic migraine type headache and sleep difficulties. Reports she is having constant migraine- her typical pressure headache. Tolerating increased topiramate well. Has tried naratriptan. Usually takes this once the headache is very bothersome- and has minimal effect. Tolerates it well, but it does make her sleepy. She has had episodes predominantly when standing, once not standing, where she will feel all of a sudden that she needs to brace herself, weakness a little shakiness. Typically passes in sec, yesterday lasted about 5 minutes. States she typically eats 3 times a day. And tries to drink enough fluid. Her BP today is 102/70, previously 110/51. Interval work-up: * 08/14/2024, MR/MR head/brain wo/w con * No acute or structural brain abnormality or abnormal enhancement. * Probable high-riding right internal jugular bulb. * 10/20/2024, CT/CT internal auditory canals BI: unremarkable, with bilateral intact jugular foramen. * 11/09/2024: Eye consult: no evidence ofr papilledema * O10/28/2024, Lumbar puncture: Opening pressure 14 cm H2O. * 10/28/2024, basic CSF studies: WNL * Sleep studies * 10/20/2024, HST: AHI 2/hr w/ O2 lori 88%. * 11/23/2024, In-lab PSG: AHI < 1 /hr, O2 lori 89%, average SpO2 95%, light- moderate snoring. Overall 16 limb movements per hour, of which 3 per hour were associated with arousals.? Laboratory Tests 08/11/24 08/11/24 10/28/24 09:25 09:56 11:25 Hgb 15.0 Hct 45.1 Plt Count 312 ESR 6 BUN 12 Creatinine 0.80 Iron 39 TIBC 266 % Saturation 15 Unsat Iron Binding 227 Ferritin 317 H C-React Prot High Sens 7.9 H Triglycerides 118 Cholesterol 217 H LDL Cholesterol, Calc 120 H HDL Cholesterol 74 Vitamin B12 926 H 25-OH Vitamin D Total 23 L Folate 16.2 TSH 0.79 CSF Tube Number 3 CSF Volume 5.0 CSF Appearance CLEAR CSF Color COLORLESS CSF WBC 1 CSF RBC 0 CSF Lymphocytes 87 CSF Monocytes % 13 CSF Appearance (b) Clear, Colorless CSF Glucose 65 CSF Total Protein 39.2 08/11/24, previous HPI: Right-handed 44-yr-old female presents for f/u of worsening chronic migraine type headache and sleep difficulties. Pt reports her headaches are a little bit better. The headache is still a pressure which starts in the back of her head, and moves into the right retroorbital and periorbital eye region, becomes right frontal/wayne-orbital pounding and throbbing. Associated symptoms: photophobia, phonophobia, osmophobia, nausea, once had spinning dizziness, not right in space dizziness, lightheadedness, fatigue, cognitive difficulties, activity intolerance, watery eyes, hands become tingling and cold, right side of face/eye- altered sensation/numbness.. The headache is worse when standing or bending over. No longer having daily headache, but having more headaches days than not in a month. The headaches last days now instead of weeks. She was able to start and increase the topiramate up to 100 mg q.h.s.. She feels the riboflavin, magnesium, topiramate has helped some- and is tolerating it well. Pt tried Sumatriptan, however it was ineffective and makes her feel weird and loopy. She continues to endorse sleep difficulties- Snoring, Excessive daytime sleepiness, Fatigue, Restless sleep, Restless legs- sometimes can be bothersome, urge to move, has to get up and walk around. Endorses brief ringing tinnitus x's 2, Denies interval vision changes, pulsatile tinnitus. Apr 2024, Initial HPI: Right-handed 44-yr-old female presents for new pt evaluation of headache disorder per referral from PCP. Pt reports she has had headaches since childhood which have been worsening and changing earlier this year without known cause. She has daily headaches for some time, but this intensified and has had stronger daily headaches and now more pressure and right facial numbness sensation w/ her migraine attacks since the beginning of the year. She has not seen neurology before. She is hoping to understand the cause of her migraine and head pressure s/s. PMH and ROS are notable for:? General: fatigue, KALE- has needed transfusions, intentional wt loss- through diet. Vision- vision may be blurry at times w/wo headache. Musculoskeletal disorders or injury: chronic back issues Mood d/o: Anxiety- feels well managed CV: has had pre-syncopal feeling more so when anemic GI d/o: GERD RN OPERATING ROOM: Menses is now regular- has h/o menorrhagia. Family history of migraine or other headache disorder: her mom had a benign brain tumor. Pertinent denials include: Tinnitus or whooshing tinnitus. History of concussion/head injury, Respiratory d/o, CV disease, Clotting or hematology d/o, Endocrine d/o, metabolic d/o, History of seizure, syncope, or drop attacks, constipation. Lifestyle considerations: Sleep routine: Usual sleep routine: varies d/t work Sleep difficulties: sometimes. Endorses: Snoring, Excessive daytime sleepiness, Fatigue, Restless sleep, Restless legs- sometimes can be bothersome, urge to move, has to get up and walk around. Caffeine use: has been decreasing use- 1-2 cups per day Substance use: none Exercise:?tries. 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 Not currently sexually active. Headache questionnaire:? Previous work-up: October 2023, Head CT- read as normal. Last eye exam- Typical headache characteristics: Prodrome symptoms: fatigue Aura: Once or twice has seen little white dots before the headache Pain intensity: moderate to severe Location, quality, characteristics: Pressure starts in the back of her head, and moves into the right retroorbital and periorbital eye region, becomes right frontal/wayne-orbital pounding and throbbing. Associated symptoms: photophobia, phonophobia, osmophobia, nausea, once had spinning dizziness, not right in space dizziness, lightheadedness, fatigue, cognitive difficulties, activity intolerance, watery eyes, hands become tingling and cold, right side of face/eye- altered sensation/numbness- which is a newer symptom. Postdrome: lingers Triggers: no known triggers. WOLFE worsens if bends over. Time of day: No specific time of day Duration and Frequency: Almost daily. An attack can last days to weeks. How does headache impact your life? Has had to miss to work and has had 3 ER visits since October 2023. Current acute medication use/interventions: Excedrin 2 tabs almost daily, Ibuprofen 600mg about once a week, Tylenol 1000mg every other day. Current preventative medication use: None Non-pharmacological interventions: Rest, migraine cooling cap. [facility] Medical History Elevated C-reactive protein (CRP) Anemia Surgical History H/O foot surgery Social History Patient Tobacco Use Status: Never used Tobacco Physical Exam Vital Signs: Last Vital Signs Pulse 84 02/15/25 07:59 BP 102/70 02/15/25 07:59 Pulse Ox 99 02/15/25 07:59 Oxygen Delivery Method Room Air 02/15/25 07:59 BMI result Body Mass Index 45.4 Const Orientation/consciousness: patient oriented x3 Resp Effort & Inspection: normal respiratory effort and able to speak in complete sentences Neuro General: patient oriented x3 Cranial nerves: Yes CN's II-XII intact bilaterally (w/ very mild right sided facial assymetry), Yes Bilaterally intact EOM present and Yes Nystagmus not present Cognition (Neuro): normal cognition Gait exam (Neuro): Normal gait present Motor exam (neuro): 5/5 motor strength present throughout Pupils: Normal pupillary reactivity/response: bilateral Psych Appearance: grossly normal Mental Status: mental status grossly normal Speech and movement: Normal speech and movement present Affect: normal affect Attitude: cooperative Thought process: Normal thought process present Assessment & Plan Assessment & Plan (1) Chronic migraine with aura: Comment: sensory aura s/s- cold/tingling hands Code(s): G43.E09 - Chronic migraine with aura, not intractable, without status migrainosus Category: Medical Qualifiers: Status migrainosus presence: without status migrainosus Intractability: not intractable Qualified Code(s): G43.E09 - Chronic migraine with aura, not intractable, without status migrainosus (2) Snoring: Code(s): R06.83 - Snoring Category: Medical (3) Restless leg syndrome: Code(s): G25.81 - Restless legs syndrome Category: Medical (4) Paresthesia: Code(s): R20.2 - Paresthesia of skin Category: Medical (5) Fatigue: Code(s): R53.83 - Other fatigue Category: Medical Qualifiers: Fatigue type: unspecified Qualified Code(s): R53.83 - Other fatigue (6) Lightheadedness: Code(s): R42 - Dizziness and giddiness Category: Medical Plan Reviewed interval work-up, brain MRI w/wo, f/u temporal CT, LP, CSF studies, labs- overall results unremarkable, and no findings to raise concern for a secondary process for pt's chronic migraine. Reviewed interval sleep studies- no evidence ofr sleep apnea, though there was snoring and a mild degree of PLMS a/w arousals. * Pt advised to sleep w/ head elevated, may use a sleep apnea wedge pillow. For episodes of lightheadedness: Check EKG Increase fluids to 64-80 oz per day, including 1 16-24 oz serving of electrolyte replacement beverage, such as Gatorade or Powerade. If orthostatic lightheadedness symptoms persists, consider cardiology workup. For overall headache management: * Optimize good self-care, including but not limited to maintaining a healthy diet, adequate fluid intake, adequate sleep, and engaging in regular physical activity. * Track headaches, especially after any treatment regimen changes. Migraine [employer] is one of many headache tracking apps. * Information shared on non-pharmacological interventions which may help to alleviate headache attack burden. For light sensitivity: Patient may benefit from trying blue light filtering glasses, green glasses, green light therapy. Avoiding wearing sunglasses inside. For sound sensitivity: Patent may benefit from trying noise cancellation ear plugs. Neuromodulation devices, which can be used alone or with pharmacological treatment. * Continue to optimize sleep hygiene, information previously shared on sleep education resources, specifically resource for shift work sleep d/o's. For acute headache treatment: Hold Naratriptan 2.5mg tab, 1/2 - 1 tab (1.25-2.5mg) order- not fully effective. Trial Rizatriptan 10mg tab, 1/2 - 1 tab (5-10mg) at onset of headache, may repeat in 2 hours. Max of 2 tabs (200mg) per 24 hours. May adjunct with OTC Tylenol 650mg every 4 hours, Ibuprofen (liquigel) 600mg every 6 hours, or Naproxen (liquigel) 440mg every 12 hrs as needed. Potential adverse effects of triptans, include but are not limited to nausea, fatigue, chest tightness/tingling (usually passes within a few minutes), medication overuse headaches. Previous acute migraine medication trials: Excedrin- ineffective. Sumatriptan 50mg and 100mg tab- ineffective and not tolerated (causes loopiness and weird feeling). Acute migraine medication contraindications: None at this time Future consideration: gepant For headache prevention medication: Preventative medications should be taken routinely as prescribed for best effect, it may take several weeks for full effect to take effect. Continue Riboflavin 400mg qam Continue Magnesium 400mg qhs Start Co Q10 400 mg daily in a.m., taken with a higher fat food. Continue topiramate 100 mg b.i.d. Start Aimovig 140mg/ml autoinjector, 1ml (140mg) subcutaneous injection once a month. * Potential adverse effects of Aimovig include but are not limited to injection site reactions, cramps, constipation, increase in blood pressure. * Patient request RN injection training once Aimovig available Previous migraine prevention medication trials: None at this time Migraine prevention medication contraindications: All beta-blockers and anti-HTN agents d/t lightheadedness and hypotension. Will follow-up upon review of above and patient to follow-up in clinic in 6 months or sooner prn. Orders: Orders ECG 12 lead EKG Today E78.5 - Hyperlipidemia, unspecified, R42 - Dizziness and giddiness Medications: New erenumab-aooe (Aimovig Autoinjector) 140 mg subcut ONCE 1 mL 6RF 30 days rizatriptan max 3 tabs per day or 6 tabs per week 5 - 10 mg (0.5 - 1 x 10 mg) PO Q2H PRN 6.0 tabs 3RF migraine headache 21 days coenzyme Q10 (Co Q-10) in am, take w/ a higher fat food 400 mg PO DAILY 30 caps 6RF 30 days Coding Level of Care Code Est Pt Level 4 (41367) Diagnoses Chronic migraine with aura without status migrainosus, not intractable G43.E09 Status migrainosus presence: without status migrainosus Intractability: not intractable Snoring R06.83 Restless leg syndrome G25.81 Paresthesia R20.2 Fatigue, unspecified type R53.83 Fatigue type: unspecified Lightheadedness R42
--- OUTSIDE RECORDS SUMMARY | 2025-02-15 07:57 | XMS_ITS | Clinical Summary ---
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 Not on sourav e 10/15/2024 Are you concerned about learning? Not on file 10/15/2024 No 10/15/2024 No 10/15/2024 Digital Access Answer Date Recorded No 10/15/2024 No 10/15/2024 Reliable internet access at home? Not on file 10/15/2024 Device with a working camera? Not on file Comments Unknown Sex and Gender Information Value Date Recorded Sex Assigned at Female 09/30/2024 1:40 PM EDT Legal Sex Female 1:33 PM EDT Gender Identity Female 09/30/2024 1:40 PM EDT Sexual Orientation Straight 09/30/2024 1: 40 PM EDT Plan of Treatment Upcoming Encounters Date Type Department Care Team (Late st Contact Info) Description 05/25/2025 8:00 AM EST Evaluation [facility] [address] [place] [address] Ramon Felder AuD [address] [place] [address] [email or web address] Health Maintenance Due Date Last Done Comments Adult Td,Tdap Booster 1980 DEPRESSION SCREENING 1994 SMOKING Hx and SMOKELESS TOB ACCO SCREENING 1995 HEPATITIS C SCREENING 2000 HIV ONE-TIME SCREENING (18-6 5 YEARS) 2000 PAP SMEAR 2003 MAMMOGRAM 2022 COVID-19 VACCINE (2023-2 5 season) 2024 HEPATITIS A VACCINES Aged Out No long er eligible based on patient's age to complete this topic HIB VACCINES Aged Out No longer eligi ble based on patient's age to complete this topic MENINGOCOCCAL VACCINES (ACWY) Aged Out No longer eligible based on patient's age to complete this topic MENINGOCOCCAL VACCINES (B) Aged Out N o longer eligible based on patient's age to complete this topic PNEUMOCOCCAL VACCINES (0-49 years) Aged Out No longer eligible based on patient's age to complete this topic Medical Devices Not on file Insurance * Guarantor: Lisseth Alcocer Account Type Relation to Patient Date of Phone Billing Address Personal/Family Self [address] [place] [address] [employer] NON [employer] PCP [employer] [employer] * Guarantor: Lisseth Alcocer Account Type Relation to Patient Date of Phone Billing Address Personal/Family Self [address] [place] [address] [employer] NON [employer] PCP [facility] * Guarantor: Lisseth Alcocer Account Type Relation to Patient Date of Phone Billing Address Personal/Family Self [address] [place] [address] [employer] NON [employer] PCP [facility] * Guarantor: Lisseth Alcocer Account Type Relation to Patient Date of Phone Billing Address Personal/Family Self [address] [place] [address] [employer] NON [employer] PCP [facility] * Guarantor: Lisseth Alcocer Account Type Relation to Patient Date of Phone Billing Address Personal/Family Self [address] [place] [address] [employer] NON [employer] PCP [employer] * Guarantor: Lisseth Alcocer Account Type Relation to Patient Date of Phone Billing Address Personal/Family Self 1980 [address] [facility], [facility] [place] [address] [employer] NON [employer] PCP [facility] [employer] Care Teams Chicken Fancier Relationship Specialty Start Date End Date Ginny Marte DO [address] [place] [address] PCP - General 09/30/24 Additional Source Comments The information contained in this document represents components of the legal health record. It is not the complete legal health record.[facility]
[2025-02-15 07:59] VITALS: BP 102/70; PULSE 84; O2SAT 99; BMI 45.4
== END 2025-02-15 08:48 | disposition home or self-care (01) ==
LOC: HO.HSMS 07:53
PROVIDERS: Visit Provider Nurse Practitioner Family
DX: G43.E09 Chronic migraine with aura, not intractable, without status migrainosus (principal); R06.83 Snoring; G25.81 Restless legs syndrome; R20.2 Paresthesia of skin; R53.83 Other fatigue; R42 Dizziness and giddiness
CPT/HCPCS: 99214

== ENCOUNTER → 2025-02-15 07:53 | Outpatient (BNVA) | payer OTHER, SELFPAY | PROVIDERS: Visit Provider Nurse Practitioner Family | DX: R42 Dizziness and giddiness (principal); E78.5 Hyperlipidemia, unspecified; R06.83 Snoring; G43.E09 Chronic migraine with aura, not intractable, without status migrainosus; G25.81 Restless legs syndrome; R20.2 Paresthesia of skin; R53.83 Other fatigue | CPT/HCPCS: 99212 ==

== ENCOUNTER 2025-03-13 12:17 | Emergency (ER) | payer OTHER, SELFPAY ==
--- NOTE | 2025-03-13 | ECG_ITS ---
Test Reason : chest pain Blood Pressure : */* mmHG Vent. Rate : 86 BPM Atrial Rate : 86 BPM P-R Int : 146 ms QRS Dur : 82 ms QT Int : 350 ms P-R-T Axes : 25 54 43 degrees QTcB Int : 418 ms Normal sinus rhythm Normal ECG No previous ECGs available Referred By: Generic ED Physician Electronically Signed By: ARIANNA DIETZ
--- NOTE | ~2025-03-13 | XR_ITS ---
CLINICAL HISTORY: cp 1 view chest x-ray. Comparison: None Findings: Normal lung volumes. Lungs are clear. No pneumothorax or pleural effusion. Heart size normal. No passive venous congestion. No midline shift or tracheal deviation. No acute fracture. Impression: 1. No acute cardiopulmonary disease. This document has been electronically signed by: Zeb Lovell MD on 03/13/2025 16:40:12
[2025-03-13 12:51] VITALS: BP 125/77; PULSE 88; RESP 18; TEMP 36.3; O2SAT 99; BMI 44.4
--- NOTE | 2025-03-13 12:51 | ED_ITS ---
HPI - Headache General Chief Complaint: General Medical Stated Complaint: CP, headaches Time Seen by Provider: 03/13/25 12:59 Related Data Previous Rx's ?Medication ?Instructions ?Recorded naratriptan 2.5 mg tablet See Rx Instructions PO .COMP AMRIT 08/11/24 PRN migraine headache 30 days #12 tabs magnesium oxide 400 mg (241.3 mg 400 mg PO BEDTIME 30 days #90 tabs 12/08/24 magnesium) tablet riboflavin (vitamin B2) 400 mg 400 mg PO DAILY 30 days #90 tabs 12/08/24 tablet topiramate 100 mg tablet 100 mg PO BID 30 days #60 ta bs 12/08/24 coenzyme Q10 400 mg capsule (Co 400 mg PO DAILY 30 day s #30 caps 02/15/25 Q-10) rizatriptan 10 mg tablet 5 - 10 mg (0.5 - 1 x 10 mg) PO Q2H 02/15/25 PRN migraine headache 21 days #6.0 tabs erenumab-aooe 140 mg/mL 140 mg subcut ONCE 30 days # 1 mL 02/26/25 subcutaneous auto-injector (Aimovig Autoinjector) Allergies Allergy/AdvReac Type Severity Reaction Status Date / Time No Known Allergies (No Known Allergy Verified 03/13/25 12:54 Allergies*) PMFSH Past Medical History Medical History Elevated C-reactive protein (CRP) Anemia Surgical History H/O foot surgery Social History Social History Patient Tobacco Use Status: Never used Tobacco Smoked in Last 30 Days: No Use of substances other than those prescribed or required for medical reasons: No Advance Directives: No Advance Directives Information Provided: Yes Do you have a plan to hurt others: No Plan Patient : No Physical Exam 2 Vital Signs: Vital Signs: Last Vital Signs Temp 98 F 03/13/25 15:51 Pulse 70 03/13/25 15:51 Resp 18 03/13/25 15:51 BP 123/85 03/13/25 15:51 Pulse Ox 99 03/13/25 12:51 O2 Del Method Room Air 03/13/25 15:51 BMI result Body Mass Index 44.4 Course Course Course Narrative: This is an RME: Additional HPI, ROS, PE not included below will be deferred to primary provider. RME assessment and note performed by: Cely Smith PA-C This is a 67-kztd-yjw-female, with a hx of migraines, iron deficiency anemia, who presents to the ER with complaints of headache, chest tightness/ shaky hands. Reports that the chest tightness and shakey hands occurred while she was at congregation yesterday. She states that she then started to progress to her body - lasted for 5-10 minutes. Had similar episode less than 1 month ago. Reports migraine for 1 week - constant, has been taking topamax for her symptoms without relief - no meds today. Plan: Labs, EKG, cxr, further ER eval needed Reevaluation(s) Reevaluation #1: Patient reported improvement of the headache and chest pain, otherwise unremarkable workup for the chest pain. Time: 15:53 Medications Administered Discontinued Medications Generic Name Dose Route Start Last Admin Trade Name Joseline PRN Reason Stop Dose Admin Diphenhydramine HCl 25 mg 03/13/25 15:15 03/13/25 15:37 Diphenhydramine Hcl 50 Mg/Ml Vial IVPUSH 03/13/25 15:16 25 mg ONCE ONE Administration Sodium Chloride 1,000 mls @ 999 mls/hr 03/13/25 13:56 03/13/25 15:40 Ns IV 03/13/25 14:56 Infused .Q1H1M ONE Infusion Acetaminophen 1,000 mg in 100 mls @ 400 mls/hr 03/13/25 13:56 03/13/25 15:09 Ofirmev IV 03/13/25 14:10 Infused ONCE ONE Infusion Ondansetron HCl 4 mg 03/13/25 13:56 03/13/25 14:16 Ondansetron Hcl 4 Mg/2 Ml Vial IVPUSH 03/13/25 13:57 4 mg ONCE ONE Administration Medical Decision Making Lab Data 03/13/25 13:15 03/13/25 13:16 Labs: Lab Results 03/13/25 03/13/25 03/13/25 Range/Units 13:15 13:16 13:17 WBC 7.9 (4.8-10.8) X10*3/uL RBC 4.47 (4.20-5.50) X10*6/uL Hgb 13.9 (12.0-16.0) g/dl Hct 40.4 (37.0-47.0) % MCV 90.4 (80.0-98.0) fL MCH 31.1 (27.0-33.0) pg MCHC 34.4 (31.0-35.0) g/dl RDW 13.3 (11.0-16.0) % Plt Count 272 (160-400) X10*3/uL MPV 11.2 (9.4-12.3) fL Immature Gran % (Auto) 0.4 (0.0-0.4) % Neut % (Auto) 69.3 (45-73) % Lymph % (Auto) 20.3 (20-40) % Nolan % (Auto) 7.9 (2-11) % Eos % (Auto) 1.3 (0-4) % Baso % (Auto) 0.8 (0-2) % Lymph # (Auto) 1.6 (1.2-4.9) X10*3/uL Nolan # (Auto) 0.6 (0.1-1.2) X10*3/uL Eos # (Auto) 0.1 (0.0-0.4) X10*3/uL Baso # (Auto) 0.1 (0.0-0.2) X10*3/uL Abs Immat Gran (auto) 0.03 (0.00-0.03) X10*3/uL Absolute Neuts (auto) 5.5 (2.0-8.3) x10*3/uL Absolute Nucleated RBC 0.000 (0.0-0.012) X10*3/uL Nucleated RBC % (auto) 0.0 (0.0-0.2) /100WBC Sodium 141 (135-145) mmol/L Potassium 3.5 (3.3-5.1) mmol/L Chloride 113 H (96-108) mmol/L Carbon Dioxide 24 (22-29) mmol/L Anion Gap 8 L (12-20) BUN 9 (9-16) mg/dL Creatinine 0.85 (0.5-1.4) mg/dL Estim Creat Clear Calc 93.2 Estimated GFR > 60 Random Glucose 101 (60-115) mg/dL Calcium 8.7 (8.4-10.2) mg/dL Magnesium 2.2 (1.6-2.6) mg/dL Total Bilirubin 0.4 (0.0-1.0) mg/dL Direct Bilirubin 0.1 (0.0-0.5) mg/dL AST 20 (5-31) U/L ALT 22 (0-31) U/L Alkaline Phosphatase 69 (39-117) U/L Troponin I High Sens < 2.7 (<3.5-17.0) ng/L Total Protein 6.9 (6.5-8.0) g/dL Albumin 4.0 (3.5-5.0) g/dL Beta HCG, Quant < 2 mIU/mL COVID-19 (CARMEN) Negative (Negative) COVID-19 Clin Com See Note Influenza Type A (DUNCAN) Negative (Negative) Influenza Type B (DUNCAN) Negative (Negative) Influenza A & B Note See Note Discharge Plan Discharge Clinical Impression: Migraine, Non-cardiac chest pain Patient Disposition: Home, Self-Care Instructions: Chest Pain (ED), Migraine Headache (ED) Prescriptions: No Action magnesium oxide 400 mg (241.3 mg magnesium) tablet 400 mg PO BEDTIME 30 Days Qty: 90 6RF Rx Instructions: may hold for loose stools riboflavin (vitamin B2) 400 mg tablet 400 mg PO DAILY 30 Days Qty: 90 6RF topiramate 100 mg tablet 100 mg PO BID 30 Days Qty: 60 6RF Aimovig Autoinjector 140 mg/mL auto-injector 140 mg subcut ONCE 30 Days Qty: 1 6RF Rx Instructions: Prior authorization APPROVED 02/19/25-08/21/25 naratriptan 2.5 mg tablet See Rx Instructions PO .COMPLEX PRN (Reason: migraine headache) 30 Days Qty: 12 6RF Rx Instructions: take 1/2 - 1 tab at onset of headache; if no relief may repeat 1 tab after at least 4 hrs; max = 2 tabs/24 hrs orally PRN; coenzyme Q10 [Co Q-10] 400 mg capsule 400 mg PO DAILY 30 Days Qty: 30 6RF Rx Instructions: in am, take w/ a higher fat food rizatriptan 10 mg tablet 5 - 10 mg PO Q2H PRN (Reason: migraine headache) 21 Days Qty: 6.0 3RF Rx Instructions: max 3 tabs per day or 6 tabs per week Print Language: Persian
--- OUTSIDE RECORDS SUMMARY | 2025-03-13 13:05 | XMS_ITS | Clinical Summary ---
Demographics Address [address] [facility] [place] [address] Mobile Phone Home Phone Work Phone Email Address Preferred Language Prydeinig Marital Status Single Holiness Affiliation Unknown Race Other Race Ethnic Group or Author Organization [facility] Address [address] [place] [address] [place] [phone] Phone Care Team Providers Care Material Checker Name Role Phone Ginny Marte DO Primary Care Provider [phone] Social History Tobacco Use Types Packs/Day Years [...] AM EST Evaluation [facility] [place] [address] [facility] [address] [place] [address] Ramon Felder AuD [address] [place] [address] [email or web address] Maintenance Due Date Last Done Comments Adult Td,Tdap Booster 1982 DEPRESSION SCREENING 1994 SMOKING Hx and SMOKELESS TOB ACCO SCREENING 1995 HEPATITIS C SCREENING 2000 HIV ONE-TIME SCREENING (18-6 5 YEARS) 2000 PAP SMEAR 2003 MAMMOGRAM 2022 INFLUENZA VACCINE (#1) 2025 COVID-19 VACCINE ( - 2023-2 5 season) 2025 HEPATITIS A VACCINES Aged Out No long [...] Personal/Family Self [address] [place] [address] [employer] NON NSPG PCP [facility] * Guarantor: Lisseth Alcocer Account Type Relation to Patient Date of Phone Billing Address Personal/Family Self [address] [place] [address] [employer] NON NSPG PCP [facility] * Guarantor: Lisseth Alcocer Account Type Relation to Patient Date of Phone Billing Address Personal/Family Self [address] [place] [address] [employer] NON NSPG PCP [facility] * Guarantor: Lisseht Alcocer Account Type Relation to Patient Date of Phone Billing Address Personal/Family Self [address] [place] [address] [employer] NON NSPG PCP [facility] * Guarantor: Lisseth Alcocer Account Type Relation to Patient Date of Phone Billing Address Personal/Family Self [address] [place] [address] [employer] NON NSPG PCP [facility] * Guarantor: Lisseth Alcocer Account Type Relation to Patient Date of Phone Billing Address Personal/Family Self 1980 [address] [facility] [place] [address] [employer] NON NSPG PCP [facility] [place] [id number] Care Teams Material Checker Relationship Specialty Start Date End Date Ginny Marte DO [address] [place] [id number] PCP - General 09/30/24 Additional Source Comments The information contained in this document represents components of the legal health record. It is not the complete legal health record.[facility]
[2025-03-13 13:23] LABS: MANUAL DIFF FLAG NO
[2025-03-13 13:24] LABS: Hematocrit 40.4 % (37.0-47.0); Hemoglobin 13.9 g/dl (12.0-16.0); Imm Gran Abs Auto 0.03 X10*3/uL (0.00-0.03); Imm Gran Pct Auto 0.4 % (0.0-0.4); Lymphocytes Absolute Auto 1.6 X10*3/uL (1.2-4.9); Mean Corpuscular HGB Conc 34.4 g/dl (31.0-35.0); Mean Corpuscular Hemoglobin 31.1 pg (27.0-33.0); Mean Corpuscular Volume 90.4 fL (80.0-98.0); NRBC Abs Auto 0.000 X10*3/uL (0.0-0.012); NRBC Pct Auto 0.0 /100WBC (0.0-0.2); Platelet Count 272 X10*3/uL (160-400); Red Blood Count 4.47 X10*6/uL (4.20-5.50); White Blood Count 7.9 X10*3/uL (4.8-10.8)
[2025-03-13 13:36] VITALS: PULSE 78; RESP 16
--- NOTE | 2025-03-13 13:37 | PC.NURSE ---
Pt presents to ED for c/o persistent intermittent migraines, states recently started on new injection. C/O right sided neck and right posterior head pain with mild nausea, photophobia and sensitivity to sound. Also reports intermittent chest tightness and pressure with associated shaking episodes lasting approx 5-10 min. CP mid sternal, non radiating without SOB or dizziness during episodes. NSR on tele. Skin pwd. Speaking full sentences. IV established 20g to right AC. Mother at bedside
[2025-03-13 13:40] LABS: COVID-19 Test Negative (Negative); IDNOW Serial# 55D5AD1C
[2025-03-13 13:41] LABS: IDNOW Serial# 58CA691E; Influenza B2 Negative (Negative)
[2025-03-13 13:45] LABS: Alanine Aminotransferase 22 U/L (0-31); Albumin Level 4.0 g/dL (3.5-5.0); Alkaline Phosphatase 69 U/L (39-117); Anion Gap 8 (12-20); Aspartate Amino Transferase 20 U/L (5-31); Blood Urea Nitrogen 9 mg/dL (9-16); Calcium 8.7 mg/dL (8.4-10.2); Carbon Dioxide 24 mmol/L (22-29); Chloride 113 mmol/L (96-108); Creatinine Clr Calc Pharmacy 93.2; Estimated Glomerular Filt Rate > 60; Magnesium 2.2 mg/dL (1.6-2.6); Potassium 3.5 mmol/L (3.3-5.1); Sodium 141 mmol/L (135-145); Total Protein 6.9 g/dL (6.5-8.0)
[2025-03-13 13:56] LABS: Troponin-I High Sensitivity < 2.7 ng/L (<3.5-17.0)
--- NOTE | 2025-03-13 13:58 | ED_ITS ---
HPI - General Adult General Chief complaint: General Medical Stated complaint: CP, headaches Time Seen by Provider: 03/13/25 12:59 Source: patient, family and old records reviewed Mode of arrival: ambulatory Limitations: no limitations History of Present Illness ED Provider: DR. Lozano HPI narrative: 44-year-old female history of migraine presented with typical headache for 2 days feels a pressure on her left side of her head and pressure in the occipital area, slightly nauseous but no vomiting, no blurry vision, no double vision, no neck stiffness, no weakness, no numbness. Patient also is feeling mid chest pain since yesterday, no lower extremity swelling or tenderness, no recent travel. Related Data Previous Rx's ?Medication ?Instructions ?Recorded naratriptan 2.5 mg tablet See Rx Instructions PO .COMP AMRIT 08/11/24 PRN migraine headache 30 days #12 tabs magnesium oxide 400 mg (241.3 mg 400 mg PO BEDTIME 30 days #90 tabs 12/08/24 magnesium) tablet riboflavin (vitamin B2) 400 mg 400 mg PO DAILY 30 days #90 tabs 12/08/24 tablet topiramate 100 mg tablet 100 mg PO BID 30 days #60 ta bs 12/08/24 coenzyme Q10 400 mg capsule (Co 400 mg PO DAILY 30 day s #30 caps 02/15/25 Q-10) rizatriptan 10 mg tablet 5 - 10 mg (0.5 - 1 x 10 mg) PO Q2H 02/15/25 PRN migraine headache 21 days #6.0 tabs erenumab-aooe 140 mg/mL 140 mg subcut ONCE 30 days # 1 mL 02/26/25 subcutaneous auto-injector (Aimovig Autoinjector) Allergies Allergy/AdvReac Type Severity Reaction Status Date / Time No Known Allergies (No Known Allergy Verified 03/13/25 12:54 Allergies*) Review of Systems 2 Review of Systems: All other systems are reviewed and are negative Constitutional: Reports as per HPI and Reports no additional constitutional complaints Eyes: Reports as per HPI and Reports no additional eye complaints Reports system reviewed and no additional complaints, except as documented Cardiovascular: Reports as per HPI and Reports no additional cardiovascular complaints Respiratory: Reports as per HPI and Reports no additional respiratory complaints Gastrointestinal: Reports as per HPI and Reports no additional gastrointestinal complaints Genitourinary: Reports no additional female genitourinary complaints Musculoskeletal: Reports no additional musculoskeletal complaints Skin/Breast: Reports system reviewed and no additional complaints, except as docu Psychiatric: Reports no additional psychiatric complaints Endocrine: Reports no additional endocrine complaints Hematologic/Lymphatic: Reports no additional hematologic/lymphatic complaints Allergic/Immunologic: Reports no additional allergic/immunologic complaints Reports system reviewed and no additional complaints, except as documented and Reports Abnormal speech present [facility] Past Medical History Medical History Elevated C-reactive protein (CRP) Anemia Surgical History H/O foot surgery Social History Social History Patient Tobacco Use Status: Never used Tobacco Smoked in Last 30 Days: No Use of substances other than those prescribed or required for medical reasons: No Advance Directives: No Advance Directives Information Provided: Yes Do you have a plan to hurt others: No Plan Patient : No Physical Exam ED Vital Signs: Vital Signs - 24 hr 03/13/25 12:51 03/13/25 13:36 03/13/25 15:51 Temperature 97.4 F 98 F Pulse Rate 88 78 70 Respiratory Rate 18 16 18 Blood Pressure 125/77 123/85 Pulse Oximetry 99 Oxygen Delivery Method Room Air Room Air BMI result Body Mass Index 44.4 Vital signs have been reviewed and appear to be correct. Blood pressure elevated. Heart rate normal. Respiratory rate normal. Temperature normal. Oxygen saturation normal. Appearance: Alert. Oriented X3. No acute distress. Head: Normal external exam. Normocephalic. Atraumatic. No Olmos signs noted. No raccoon eyes noted Eyes: PERRLA. EOMI. Conjunctiva and sclera normal. Eyelids normal. ENT: TM's Normal. Pharynx normal. Uvula midline. Moist mucous membranes. No trismus noted. No drooling noted. No muffled voice noted. Neck: Normal inspection. Neck supple. FROM. No adenopathy. Thyroid Normal. No meningeal signs. No neck mass noted. CVS: Normal heart rate and rhythm. Heart sound normal. No murmurs noted. Pulses normal throughout. Respiratory: No respiratory distress. Painless inspiration. Breath sounds normal. No wheezes/rales/rhonchi noted. Chest nontender. No accessory muscle usage noted or decreased air movement noted. Abdomen: Soft and nontender. Bowel sounds normal in all 4 quadrants. No distention noted. No organomegaly noted. No visible injury noted. Back: No CVA tenderness. Full range of motion noted. Skin: Skin warm and dry. Normal skin color. Normal skin turgor. No rashes/lesions/lacerations noted. Extremities: No lower extremity edema. Extremities exhibit normal range of motion. Extremities nontender. Neuro: Mental status: Normal attention, orientation, memory, and affect. Cranial nerves: Pupils are equal, round and reactive to light, EOMI, visual coronado are fall, face is symmetric, facial sensations are normal. Motor examination normal muscle tone, strength to 4 extremities. DTR are +2, planter's are flexor. Sensory exam; normal coordination, no ataxia, gait stable. Cerebellar exam: Ongazv-kt-gswl and vroh-ra-wvqe is normal. Extrapyramidal system: No tremors, no rigidity with normal facial expressions. Pronator drift not present Course Reevaluation(s) Reevaluation #1: Feels better, repeat neuro exam is intact, negative workup for chest pain for ACS. Time: 14:00 Reevaluation #2: Improvement of headache and migraine with IV Tylenol and Benadryl. Repeat neuro exam unremarkable for acute deficit. Time: 15:58 Medications Administered Discontinued Medications Generic Name Dose Route Start Last Admin Trade Name Freq PRN Reason Stop Dose Admin Diphenhydramine HCl 25 mg 03/13/25 15:15 03/13/25 15:37 Diphenhydramine Hcl 50 Mg/Ml Vial IVPUSH 03/13/25 15:16 25 mg ONCE ONE Administration Sodium Chloride 1,000 mls @ 999 mls/hr 03/13/25 13:56 03/13/25 15:40 Ns IV 03/13/25 14:56 Infused .Q1H1M ONE Infusion Acetaminophen 1,000 mg in 100 mls @ 400 mls/hr 03/13/25 13:56 03/13/25 15:09 Ofirmev IV 03/13/25 14:10 Infused ONCE ONE Infusion Ondansetron HCl 4 mg 03/13/25 13:56 03/13/25 14:16 Ondansetron Hcl 4 Mg/2 Ml Vial IVPUSH 03/13/25 13:57 4 mg ONCE ONE Administration Medical Decision Making Differential Diagnosis Differential Diagnoses: The differential diagnosis associated with the presentation includes (Migraine, tension headache, ACS, pneumonia, electrolyte derangement, severe anemia.) Admission/Observation Consideration of admission/observation: Escalation of care including admission/observation considered Lab Data MDM Lab Attestation statement: I reviewed the patient's lab results. 03/13/25 13:15 03/13/25 13:16 Labs: Lab Results 03/13/25 03/13/25 03/13/25 Range/Units 13:15 13:16 13:17 WBC 7.9 (4.8-10.8) X10*3/uL RBC 4.47 (4.20-5.50) X10*6/uL Hgb 13.9 (12.0-16.0) g/dl Hct 40.4 (37.0-47.0) % MCV 90.4 (80.0-98.0) fL MCH 31.1 (27.0-33.0) pg MCHC 34.4 (31.0-35.0) g/dl RDW 13.3 (11.0-16.0) % Plt Count 272 (160-400) X10*3/uL MPV 11.2 (9.4-12.3) fL Immature Gran % (Auto) 0.4 (0.0-0.4) % Neut % (Auto) 69.3 (45-73) % Lymph % (Auto) 20.3 (20-40) % [place] % (Auto) 7.9 (2-11) % Eos % (Auto) 1.3 (0-4) % Baso % (Auto) 0.8 (0-2) % Lymph # (Auto) 1.6 (1.2-4.9) X10*3/uL [place] # (Auto) 0.6 (0.1-1.2) X10*3/uL Eos # (Auto) 0.1 (0.0-0.4) X10*3/uL Baso # (Auto) 0.1 (0.0-0.2) X10*3/uL Abs Immat Gran (auto) 0.03 (0.00-0.03) X10*3/uL Absolute Neuts (auto) 5.5 (2.0-8.3) x10*3/uL Absolute Nucleated RBC 0.000 (0.0-0.012) X10*3/uL Nucleated RBC % (auto) 0.0 (0.0-0.2) /100WBC Sodium 141 (135-145) mmol/L Potassium 3.5 (3.3-5.1) mmol/L Chloride 113 H (96-108) mmol/L Carbon Dioxide 24 (22-29) mmol/L Anion Gap 8 L (12-20) BUN 9 (9-16) mg/dL Creatinine 0.85 (0.5-1.4) mg/dL Estim Creat Clear Calc 93.2 Estimated GFR > 60 Random Glucose 101 (60-115) mg/dL Calcium 8.7 (8.4-10.2) mg/dL Magnesium 2.2 (1.6-2.6) mg/dL Total Bilirubin 0.4 (0.0-1.0) mg/dL Direct Bilirubin 0.1 (0.0-0.5) mg/dL AST 20 (5-31) U/L ALT 22 (0-31) U/L Alkaline Phosphatase 69 (39-117) U/L Troponin I High Sens < 2.7 (<3.5-17.0) ng/L Total Protein 6.9 (6.5-8.0) g/dL Albumin 4.0 (3.5-5.0) g/dL Beta HCG, Quant < 2 mIU/mL COVID-19 (CARMEN) Negative (Negative) COVID-19 Clin Com See Note Influenza Type A (DUNCAN) Negative (Negative) Influenza Type B (DUNCAN) Negative (Negative) Influenza A & B Note See Note Independent Interpretation I performed an independent interpretation of an: Plain X-Ray (Chest: No acute pathology.) Radiology Impression Discussion of test interpretation with radiology: I have reviewed the radiologist's reading. Discharge Plan Discharge Clinical Impression: Migraine, Non-cardiac chest pain Patient Disposition: Home, Self-Care Instructions: Chest Pain (ED), Migraine Headache (ED) Prescriptions: No Action magnesium oxide 400 mg (241.3 mg magnesium) tablet 400 mg PO BEDTIME 30 Days Qty: 90 6RF Rx Instructions: may hold for loose stools riboflavin (vitamin B2) 400 mg tablet 400 mg PO DAILY 30 Days Qty: 90 6RF topiramate 100 mg tablet 100 mg PO BID 30 Days Qty: 60 6RF Aimovig Autoinjector 140 mg/mL auto-injector 140 mg subcut ONCE 30 Days Qty: 1 6RF Rx Instructions: Prior authorization APPROVED 02/19/25-08/21/25 naratriptan 2.5 mg tablet See Rx Instructions PO .COMPLEX PRN (Reason: migraine headache) 30 Days Qty: 12 6RF Rx Instructions: take 1/2 - 1 tab at onset of headache; if no relief may repeat 1 tab after at least 4 hrs; max = 2 tabs/24 hrs orally PRN; coenzyme Q10 [Co Q-10] 400 mg capsule 400 mg PO DAILY 30 Days Qty: 30 6RF Rx Instructions: in am, take w/ a higher fat food rizatriptan 10 mg tablet 5 - 10 mg PO Q2H PRN (Reason: migraine headache) 21 Days Qty: 6.0 3RF Rx Instructions: max 3 tabs per day or 6 tabs per week Print Language: Icelandic
[2025-03-13 15:51] VITALS: BP 123/85; PULSE 70; RESP 18; TEMP 36.6
[2025-03-13 16:14] VITALS: BP 123/85; PULSE 70; RESP 18; TEMP 36.6; O2SAT 98
== END 2025-03-13 16:15 | disposition home or self-care (01) ==
PROVIDERS: Physician Assistant Medical; Emergency Provider Emergency Medicine
DX: G43.909 Migraine, unspecified, not intractable, without status migrainosus (principal); R07.89 Other chest pain; R11.0 Nausea; Z11.52 Encounter for screening for COVID-19; Z79.899 Other long term (current) drug therapy
CPT/HCPCS: 36415; 71045; 80048; 80076; 83735; 84484; 84702; 85025; 87502; 87635; 93005; 96361; 96374; 96375; 99284; 99285; J0131; J1200; J2405

== ENCOUNTER → 2025-03-13 12:34 | Outpatient (BNV) | payer OTHER, SELFPAY | PROVIDERS: Emergency Provider Emergency Medicine; Visit Provider Internal Medicine | DX: R07.89 Other chest pain (principal) | CPT/HCPCS: 93010 ==

== ENCOUNTER → 2025-03-13 15:15 | Outpatient (BNV) | payer OTHER, SELFPAY | PROVIDERS: Emergency Provider Emergency Medicine; Visit Provider Radiology Diagnostic Radiology | DX: R07.89 Other chest pain (principal) | CPT/HCPCS: 71045 ==

== ENCOUNTER 2025-06-04 10:15 | Emergency (ER) | payer OTHER, SELFPAY ==
--- NOTE | ~2025-06-04 | CT_ITS ---
CLINICAL HISTORY: alcantara CT head without contrast Comparison: CT/SR - CT INTERNAL AUDITORY CANALS BI - 10/20/24 07:35 EDT MR/IL/SR - MR BRAIN WITHOUT THEN WITH IV CONTRAST - 08/14/24 09:[address]/SR - CT HEAD WITHOUT IV CONTRAST - 10/27/23 16:28 EDT Findings: No acute hemorrhage. No extra-axial fluid collection. No hydrocephalus, mass-effect or herniation. Briceno-white differentiation is maintained. White matter is within normal limits for age. No acute orbital pathology. No acute soft tissue abnormality. No fracture. The visualized paranasal sinuses are predominantly clear. The mastoid air cells are clear. Impression: No acute findings. This document has been electronically signed by: Dayna Jennings MD on 06/04/2025 18:23:46
[2025-06-04 10:25] VITALS: BP 136/92; PULSE 85; RESP 18; TEMP 36.4; O2SAT 100; BMI 43.3
--- NOTE | 2025-06-04 10:26 | ED.GENADULT ---
HPI - General Adult General Chief complaint: Dizziness Stated complaint: Headache Pressure Time Seen by Provider: 06/04/25 16:39 Related Data Previous Rx's ?Medication ?Instructions ?Recorded naratriptan 2.5 mg tablet See Rx Instructions PO .COMPLEX 08/11/24 PRN migraine headache 30 days #12 tabs magnesium oxide 400 mg (241.3 mg 400 mg PO BEDTIME 30 days #90 tabs 12/08/24 magnesium) tablet riboflavin (vitamin B2) 400 mg 400 mg PO DAILY 30 days #90 tabs 12/08/24 tablet topiramate 100 mg tablet 100 mg PO BID 30 days #60 tabs 12/08/24 coenzyme Q10 400 mg capsule (Co 400 mg PO DAILY 30 days #30 caps 02/15/25 Q-10) rizatriptan 10 mg tablet 5 - 10 mg (0.5 - 1 x 10 mg) PO Q2H 02/15/25 PRN migraine headache 21 days #6.0 tabs erenumab-aooe 140 mg/mL 140 mg subcut ONCE 30 days #1 mL 02/26/25 subcutaneous auto-injector (Aimovig Autoinjector) Allergies Allergy/AdvReac Type Severity Reaction Status Date / Time No Known Allergies (No Known Allergy Verified 06/04/25 10:27 Allergies*) PMFSH Past Medical History Medical History Elevated C-reactive protein (CRP) Anemia Surgical History H/O foot surgery Social History Social History Patient Tobacco Use Status: Never used Tobacco Smoked in Last 30 Days: No Use of substances other than those prescribed or required for medical reasons: No Advance Directives: No Advance Directives Information Provided: Yes Physical Exam ED Vital Signs: Vital Signs - 24 hr 06/04/25 10:25 06/04/25 17:43 06/04/25 18:42 Temperature 97.5 F Pulse Rate 85 66 66 Respiratory Rate 18 18 16 Blood Pressure 136/92 H 96/58 L 105/51 L Pulse Oximetry 100 100 97 Oxygen Delivery Method Room Air Room Air Room Air BMI result Body Mass Index 43.3 Course Course Course Narrative: Rapid medical examination performed in triage by Aubree Lynn PA-C: Patient is a 45 year old assigned female at presenting to the emergency department with chronic head pressure / headache and new lightheaded/dizziness. Detailed physical exam and review of systems are deferred to the mid level clinician. EKG, labs, and swabs ordered. Patient placed back in the waiting room pending room availability and results. Medications Administered Discontinued Medications Generic Name Dose Route Start Last Admin Trade Name [place] PRN Reason Stop Dose Admin Sodium Chloride 1,000 mls @ 999 mls/hr 06/04/25 17:00 06/04/25 18:48 Ns IV 06/04/25 18:00 Infused .Q1H1M NIKIA Infusion Ketorolac Tromethamine 15 mg 06/04/25 16:59 06/04/25 17:12 Ketorolac Tromethamine 15 Mg/Ml Vial IVPUSH 06/04/25 17:00 15 mg ONCE ONE Administration Meclizine HCl 25 mg 06/04/25 16:59 06/04/25 17:12 Meclizine Hcl 25 Mg Tablet PO 06/04/25 17:00 25 mg ONCE ONE Administration Metoclopramide HCl 10 mg 06/04/25 16:59 06/04/25 17:12 Metoclopramide Hcl 10 Mg/2 Ml Vial IVPUSH 06/04/25 17:00 10 mg ONCE ONE Administration Medical Decision Making Medical Decision Making [facility] Narrative: My interpretation patient's CT head was grossly negative. There is no acute evidence of bleeding. There is no mass. I reviewed radiology's reading which was the same. Patient had headache that is going on in the back of her head with some dizziness that is much worse than usual. After a dose of Antivert migraine treatment using Reglan Toradol IV fluids. Symptoms improved dramatically. Headache is gone. Patient's test is negative no related issue troponin is negative. COVID flu RSV were all negative. Neurologically intact will discharge patient home question migraine related issue question peripheral vertigo. Differential Diagnosis Differential Diagnoses: The differential diagnosis associated with the presentation includes Headache dizziness Admission/Observation Consideration of admission/observation: Escalation of care including admission/observation considered Lab Data [facility] Lab Attestation statement: I reviewed the patient's lab results. 06/04/25 10:43 06/04/25 10:43 Labs: Lab Results 06/04/25 Range/Units 10:43 WBC 12.9 H (4.8-10.8) X10*3/uL RBC 4.64 (4.20-5.50) X10*6/uL Hgb 14.5 (12.0-16.0) g/dl Hct 44.3 (37.0-47.0) % MCV 95.5 (80.0-98.0) fL MCH 31.3 (27.0-33.0) pg MCHC 32.7 (31.0-35.0) g/dl RDW 12.8 (11.0-16.0) % Plt Count 297 (160-400) X10*3/uL MPV 10.9 (9.4-12.3) fL Immature Gran % (Auto) 0.3 (0.0-0.4) % Neut % (Auto) 79.4 H (45-73) % Lymph % (Auto) 12.5 L (20-40) % [place] % (Auto) 6.9 (2-11) % Eos % (Auto) 0.3 (0-4) % Baso % (Auto) 0.6 (0-2) % Lymph # (Auto) 1.6 (1.2-4.9) X10*3/uL [place] # (Auto) 0.9 (0.1-1.2) X10*3/uL Eos # (Auto) 0.0 (0.0-0.4) X10*3/uL Baso # (Auto) 0.1 (0.0-0.2) X10*3/uL Abs Immat Gran (auto) 0.04 H (0.00-0.03) X10*3/uL Absolute Neuts (auto) 10.2 H (2.0-8.3) x10*3/uL Absolute Nucleated RBC 0.000 (0.0-0.012) X10*3/uL Nucleated RBC % (auto) 0.0 (0.0-0.2) /100WBC Sodium 141 (135-145) mmol/L Potassium 3.3 (3.3-5.1) mmol/L Chloride 104 (96-108) mmol/L Carbon Dioxide 28 (22-29) mmol/L Anion Gap 12 (12-20) BUN 12 (9-16) mg/dL Creatinine 0.70 (0.5-1.4) mg/dL Estim Creat Clear Calc 110.4 Estimated GFR > 60 Random Glucose 113 (60-115) mg/dL Calcium 9.9 D (8.4-10.2) mg/dL Magnesium 2.0 (1.6-2.6) mg/dL Total Bilirubin 0.4 (0.0-1.0) mg/dL AST 16 (5-31) U/L ALT 19 (0-31) U/L Alkaline Phosphatase 74 (39-117) U/L Troponin I High Sens < 2.7 (<3.5-17.0) ng/L Total Protein 7.7 (6.5-8.0) g/dL Albumin 4.6 (3.5-5.0) g/dL Beta HCG, Quant < 2 mIU/mL Influenza Type A (PCR) NEGATIVE (Negative) Influenza Type B (PCR) NEGATIVE (Negative) RSV RNA Qual (PCR) NEGATIVE (Negative) SARS-CoV-2 RNA (RT-PCR) NEGATIVE (Negative) Independent Interpretation I performed an independent interpretation of an: EKG (Sinus heart rate is 90 ND QRS QTC normal no acute ST segment elevation) and CT Scan (CT scan of the head was grossly negative for any acute evidence of bleeding.) Radiology Impression Discussion of test interpretation with radiology: I have reviewed the radiologist's reading. External Record Review External record reviewed: Office record (Previous neurology record was reviewed) Prescription Management I considered prescription management with: Pain Medication Chronic Conditions History of migraine Social Determinants Patient?s care significantly limited by Social Determinants of Health including: Problems related to primary support group Discharge Plan Discharge Clinical Impression: Headache, migraine Patient Disposition: Home, Self-Care Prescriptions: No Action magnesium oxide 400 mg (241.3 mg magnesium) tablet 400 mg PO BEDTIME 30 Days Qty: 90 6RF Rx Instructions: may hold for loose stools riboflavin (vitamin B2) 400 mg tablet 400 mg PO DAILY 30 Days Qty: 90 6RF topiramate 100 mg tablet 100 mg PO BID 30 Days Qty: 60 6RF Aimovig Autoinjector 140 mg/mL auto-injector 140 mg subcut ONCE 30 Days Qty: 1 6RF Rx Instructions: Prior authorization APPROVED 02/19/25-08/21/25 naratriptan 2.5 mg tablet See Rx Instructions PO .COMPLEX PRN (Reason: migraine headache) 30 Days Qty: 12 6RF Rx Instructions: take 1/2 - 1 tab at onset of headache; if no relief may repeat 1 tab after at least 4 hrs; max = 2 tabs/24 hrs orally PRN; coenzyme Q10 [Co Q-10] 400 mg capsule 400 mg PO DAILY 30 Days Qty: 30 6RF Rx Instructions: in am, take w/ a higher fat food rizatriptan 10 mg tablet 5 - 10 mg PO Q2H PRN (Reason: migraine headache) 21 Days Qty: 6.0 3RF Rx Instructions: max 3 tabs per day or 6 tabs per week Referrals: Physician,None [Primary Care Provider, Medical] - 06/08/25 Print Language: Jordanian
--- NOTE | 2025-06-04 10:27 | ECG_ITS ---
Test Reason : lightheadedness Blood Pressure : */* mmHG Vent. Rate : 88 BPM Atrial Rate : 88 BPM P-R Int : 120 ms QRS Dur : 80 ms QT Int : 346 ms P-R-T Axes : 24 6 14 degrees QTcB Int : 418 ms Normal sinus rhythm Normal ECG When compared with ECG of 13-Mar-2025 12:34, No significant change was found Referred By: Aubree Lynn Electronically Signed By: CARMELA GUTIERREZ MD
[2025-06-04 10:46] LABS: MANUAL DIFF FLAG NO
[2025-06-04 10:49] LABS: Hematocrit 44.3 % (37.0-47.0); Hemoglobin 14.5 g/dl (12.0-16.0); Imm Gran Abs Auto 0.04 X10*3/uL (0.00-0.03); Imm Gran Pct Auto 0.3 % (0.0-0.4); Lymphocytes Absolute Auto 1.6 X10*3/uL (1.2-4.9); Mean Corpuscular HGB Conc 32.7 g/dl (31.0-35.0); Mean Corpuscular Hemoglobin 31.3 pg (27.0-33.0); Mean Corpuscular Volume 95.5 fL (80.0-98.0); NRBC Abs Auto 0.000 X10*3/uL (0.0-0.012); NRBC Pct Auto 0.0 /100WBC (0.0-0.2); Platelet Count 297 X10*3/uL (160-400); Red Blood Count 4.64 X10*6/uL (4.20-5.50); White Blood Count 12.9 X10*3/uL (4.8-10.8)
[2025-06-04 11:13] LABS: Alanine Aminotransferase 19 U/L (0-31); Albumin Level 4.6 g/dL (3.5-5.0); Alkaline Phosphatase 74 U/L (39-117); Anion Gap 12 (12-20); Aspartate Amino Transferase 16 U/L (5-31); Blood Urea Nitrogen 12 mg/dL (9-16); Calcium 9.9 mg/dL (8.4-10.2); Carbon Dioxide 28 mmol/L (22-29); Chloride 104 mmol/L (96-108); Creatinine Clr Calc Pharmacy 110.4; Estimated Glomerular Filt Rate > 60; Magnesium 2.0 mg/dL (1.6-2.6); Potassium 3.3 mmol/L (3.3-5.1); Sodium 141 mmol/L (135-145); Total Protein 7.7 g/dL (6.5-8.0)
[2025-06-04 11:15] LABS: Troponin-I High Sensitivity < 2.7 ng/L (<3.5-17.0)
[2025-06-04 11:57] LABS: Resp Syncy Virus RNA Qual PCR NEGATIVE (Negative); SARS COV2 PCR INHOUSE NEGATIVE (Negative)
--- NOTE | 2025-06-04 17:01 | ED.DIZZY ---
HPI - Dizziness General Chief Complaint: Dizziness Stated Complaint: Headache Pressure Time Seen by Provider: 06/04/25 16:39 History of Present Illness HPI Narrative: Patient is a 45-year-old female with a history of chronic headaches in the past. Presented today with having lightheadedness shakiness nausea. Patient is from home. History of migraine headaches in the past. There is no fever no chills. Has been having headaches on and off for the last 2 weeks very similar to previous bouts. Is over the occipital area. Patient today had some spinning type sensation. It is worse with movement. There is no fever no chills there is no focal weakness. There is no diaphoresis. Patient is from home. There is no neck pain. There is no bowel urinary incontinence. There is no difficulty ambulating. Related Data Previous Rx's ?Medication ?Instructions ?Recorded naratriptan 2.5 mg tablet See Rx Instructions PO .COMPLEX 08/11/24 PRN migraine headache 30 days #12 tabs magnesium oxide 400 mg (241.3 mg 400 mg PO BEDTIME 30 days #90 tabs 12/08/24 magnesium) tablet riboflavin (vitamin B2) 400 mg 400 mg PO DAILY 30 days #90 tabs 12/08/24 tablet topiramate 100 mg tablet 100 mg PO BID 30 days #60 tabs 12/08/24 coenzyme Q10 400 mg capsule (Co 400 mg PO DAILY 30 days #30 caps 02/15/25 Q-10) rizatriptan 10 mg tablet 5 - 10 mg (0.5 - 1 x 10 mg) PO Q2H 02/15/25 PRN migraine headache 21 days #6.0 tabs erenumab-aooe 140 mg/mL 140 mg subcut ONCE 30 days #1 mL 02/26/25 subcutaneous auto-injector (Aimovig Autoinjector) Allergies Allergy/AdvReac Type Severity Reaction Status Date / Time No Known Allergies (No Known Allergy Verified 06/04/25 10:27 Allergies*) Review of Systems Review of Systems: Positive headache Yes all other systems are reviewed and are negative PMFSH Past Medical History Attestation statement: The following information was validated with the patient. Medical History Elevated C-reactive protein (CRP) Anemia Surgical History H/O foot surgery Social History Social History Patient Tobacco Use Status: Never used Tobacco Physical Exam Exam: Exam: Appearance: Alert. Oriented X3. No acute distress. Eyes: Pupils equal, round and reactive to light. ENT: Pharynx normal. Neck: Normal inspection. Neck supple. No lymph nodes noted. No crepitus CVS: Normal heart rate and rhythm. Pulses normal. Normal S1 and S2 Respiratory: No respiratory distress. Breath sounds normal. No Wheezing. No rales Abdomen: Soft and nontender. No rigidity. No distention. good BS x4 Skin: Skin warm and dry. Normal skin color. Normal skin turgor. Extremities: No lower extremity edema. Neurovascular intact to all extremities. No Lacerations. No Rash Neuro: Oriented X 3. No motor deficit. No sensory deficit. Moving all extermities. No slurred speech Vital Signs: Vital Signs: Last Vital Signs Temp 97.7 F 06/04/25 19:33 Pulse 68 06/04/25 19:33 Resp 16 06/04/25 19:33 BP 122/73 06/04/25 19:33 Pulse Ox 96 06/04/25 19:33 O2 Del Method Room Air 06/04/25 19:33 BMI result Body Mass Index 43.3 Medications Administered Discontinued Medications Generic Name Dose Route Start Last Admin Trade Name Freq PRN Reason Stop Dose Admin Sodium Chloride 1,000 mls @ 999 mls/hr 06/04/25 17:00 06/04/25 18:48 Ns IV 06/04/25 18:00 Infused .Q1H1M NIKIA Infusion Ketorolac Tromethamine 15 mg 06/04/25 16:59 06/04/25 17:12 Ketorolac Tromethamine 15 Mg/Ml Vial IVPUSH 06/04/25 17:00 15 mg ONCE ONE Administration Meclizine HCl 25 mg 06/04/25 16:59 06/04/25 17:12 Meclizine Hcl 25 Mg Tablet PO 06/04/25 17:00 25 mg ONCE ONE Administration Metoclopramide HCl 10 mg 06/04/25 16:59 06/04/25 17:12 Metoclopramide Hcl 10 Mg/2 Ml Vial IVPUSH 06/04/25 17:00 10 mg ONCE ONE Administration Medical Decision Making Medical Decision Making [facility] Narrative: No well-appearing neurologically intact. Has pain in the occipital area. Will give pain medication will monitor carefully. Patient feels this is slightly different than previous with some dizziness a CT scan of the head was ordered. test was negative. COVID flu RSV were all negative. IV fluids ordered. Patient's electrolytes shows a normal magnesium normal troponin hemoglobin is 14.5 normal no signs of anemia. Electrolytes was normal LFTs are normal in stable condition. Differential Diagnosis Differential Diagnoses: The differential diagnosis associated with the presentation includes Lab Data [facility] Lab Attestation statement: I reviewed the patient's lab results. 06/04/25 10:43 06/04/25 10:43 Labs: Lab Results 06/04/25 Range/Units 10:43 WBC 12.9 H (4.8-10.8) X10*3/uL RBC 4.64 (4.20-5.50) X10*6/uL Hgb 14.5 (12.0-16.0) g/dl Hct 44.3 (37.0-47.0) % MCV 95.5 (80.0-98.0) fL MCH 31.3 (27.0-33.0) pg MCHC 32.7 (31.0-35.0) g/dl RDW 12.8 (11.0-16.0) % Plt Count 297 (160-400) X10*3/uL MPV 10.9 (9.4-12.3) fL Immature Gran % (Auto) 0.3 (0.0-0.4) % Neut % (Auto) 79.4 H (45-73) % Lymph % (Auto) 12.5 L (20-40) % [place] % (Auto) 6.9 (2-11) % Eos % (Auto) 0.3 (0-4) % Baso % (Auto) 0.6 (0-2) % Lymph # (Auto) 1.6 (1.2-4.9) X10*3/uL [place] # (Auto) 0.9 (0.1-1.2) X10*3/uL Eos # (Auto) 0.0 (0.0-0.4) X10*3/uL Baso # (Auto) 0.1 (0.0-0.2) X10*3/uL Abs Immat Gran (auto) 0.04 H (0.00-0.03) X10*3/uL Absolute Neuts (auto) 10.2 H (2.0-8.3) x10*3/uL Absolute Nucleated RBC 0.000 (0.0-0.012) X10*3/uL Nucleated RBC % (auto) 0.0 (0.0-0.2) /100WBC Sodium 141 (135-145) mmol/L Potassium 3.3 (3.3-5.1) mmol/L Chloride 104 (96-108) mmol/L Carbon Dioxide 28 (22-29) mmol/L Anion Gap 12 (12-20) BUN 12 (9-16) mg/dL Creatinine 0.70 (0.5-1.4) mg/dL Estim Creat Clear Calc 110.4 Estimated GFR > 60 Random Glucose 113 (60-115) mg/dL Calcium 9.9 D (8.4-10.2) mg/dL Magnesium 2.0 (1.6-2.6) mg/dL Total Bilirubin 0.4 (0.0-1.0) mg/dL AST 16 (5-31) U/L ALT 19 (0-31) U/L Alkaline Phosphatase 74 (39-117) U/L Troponin I High Sens < 2.7 (<3.5-17.0) ng/L Total Protein 7.7 (6.5-8.0) g/dL Albumin 4.6 (3.5-5.0) g/dL Beta HCG, Quant < 2 mIU/mL Influenza Type A (PCR) NEGATIVE (Negative) Influenza Type B (PCR) NEGATIVE (Negative) RSV RNA Qual (PCR) NEGATIVE (Negative) SARS-CoV-2 RNA (RT-PCR) NEGATIVE (Negative) Independent Interpretation I performed an independent interpretation of an: EKG (Sinus heart rate is 80 CO QRS QTC within normal limits is no acute ST segment elevation.) Discharge Plan Discharge Clinical Impression: Headache, migraine Patient Disposition: Home, Self-Care Instructions: Migraine Headache (ED) Prescriptions: No Action magnesium oxide 400 mg (241.3 mg magnesium) tablet 400 mg PO BEDTIME 30 Days Qty: 90 6RF Rx Instructions: may hold for loose stools riboflavin (vitamin B2) 400 mg tablet 400 mg PO DAILY 30 Days Qty: 90 6RF topiramate 100 mg tablet 100 mg PO BID 30 Days Qty: 60 6RF Aimovig Autoinjector 140 mg/mL auto-injector 140 mg subcut ONCE 30 Days Qty: 1 6RF Rx Instructions: Prior authorization APPROVED 02/19/25-08/21/25 naratriptan 2.5 mg tablet See Rx Instructions PO .COMPLEX PRN (Reason: migraine headache) 30 Days Qty: 12 6RF Rx Instructions: take 1/2 - 1 tab at onset of headache; if no relief may repeat 1 tab after at least 4 hrs; max = 2 tabs/24 hrs orally PRN; coenzyme Q10 [Co Q-10] 400 mg capsule 400 mg PO DAILY 30 Days Qty: 30 6RF Rx Instructions: in am, take w/ a higher fat food rizatriptan 10 mg tablet 5 - 10 mg PO Q2H PRN (Reason: migraine headache) 21 Days Qty: 6.0 3RF Rx Instructions: max 3 tabs per day or 6 tabs per week Referrals: Physician,None [Primary Care Provider, Medical] - 06/08/25 Interventions: ED Discharge Assessment Last Done: 06/04/25 19:33 Discharge Date/Time: 06/04/25 19:34 Print Language: Samoan
[2025-06-04 17:43] VITALS: BP 96/58; PULSE 66; RESP 18; O2SAT 100
[2025-06-04 18:42] VITALS: BP 105/51; PULSE 66; RESP 16; O2SAT 97
[2025-06-04 19:09] VITALS: BP 122/73; PULSE 68; TEMP 36.5; O2SAT 96
[2025-06-04 19:33] VITALS: BP 122/73; PULSE 68; RESP 16; TEMP 36.5; O2SAT 96
--- OUTSIDE RECORDS SUMMARY | 2025-06-04 20:44 | XMS_ITS | Clinical Summary ---
Demographics Address [address] [place] [address], 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 Name Role Phone Ginny Marte DO Primary Care Provider Encounters Date Type Department Care Team Description 05/25/2025 8:00 AM EST Evaluation [facility] at [address] [address] Ramon Felder AuD Pulsatile tinnitus of both ears (Primary Dx); Tinnitus of both ears 05/18/2025 Orders Only [facility] at [address] [address] Leda Heath Tinnitus, unspecified laterality (Primary Dx) from Last 3 Months Social History Tobacco Use Types Packs/Day Years [...] Care Team (Late st Contact Info) Description 08/16/2025 2:00 PM EST Office Visit [facility] [place] [address] [facility] 2nd [place] [address] Maldonado Solano PA-C [address] [place] [address] [email or web address] Health Maintenance Due Date Last Done Comments Adult Td,Tdap Booster 1982 DEPRESSION SCREENING 1994 SMOKING Hx and SMOKELESS TOB ACCO SCREENING 1995 HEPATITIS C SCREENING 2000 HIV ONE-TIME SCREENING (18-6 5 YEARS) 2000 PAP SMEAR 2003 MAMMOGRAM 2022 INFLUENZA VACCINE (#1) 2025 COVID-19 VACCINE ( - 2024-2 6 season) 2025 HEPATITIS A VACCINES Aged Out [...] this topic Medical Devices Not on file Procedures Procedure Name Priority Date/Time Associated Diagnosis Comments HEARING TEST Routine 05/25/2025 8:39 AM EST Tinnitus of both ears AUDIOLOGY ORDERS 05/25/2025 7:43 AM EST from Last 3 Months Results * Hearing Test (05/25/2025 8:39 AM EST) us Ginny Marte DO AUDIOLOGY SERVICES ORDERABLE S Final Result * Audiology Orders (05/25/2025 7:43 AM EST) 05/25/2025 7:43 AM EST us Provider Not In System PhD AUDIOLOGY SERVICES OR DERABLES Final Result DR MEEI AUD from Last 3 Months Insurance * Guarantor: Lisseth Alcocer Account Type Relation to Patient Date of Phone Billing Address Personal/Family Self [address] [place] [address] [employer] NON [employer] PCP [employer] * Guarantor: Lisseth Alcocer Account Type Relation to Patient Date of Phone Billing Address Personal/Family Self [address], [address] [place] [address] [employer] NON [employer]SPG PCP [employer] * Guarantor: Lisseth Alcocer Account Type Relation to Patient Date of Phone Billing Address Personal/Family Self [address], [address] [place] [address] [employer] NON NSPG PCP [employer] * Guarantor: Lisseth Alcocer Account Type Relation to Patient Date of Phone Billing Address Personal/Family Self [address], [address] [place] [address] [employer] NON NSPG PCP [employer] * Guarantor: Lisseth Alcocer Account Type Relation to Patient Date of Phone Billing Address Personal/Family Self [address], [address] [place] [address] [employer] NON NSPG PCP [employer] * Guarantor: Lisseth Alcocer Account Type Relation to Patient Date of Phone Billing Address Personal/Family Self [address], [address] [place] [address] [employer] NON NSPG PCP [employer] Care Teams Electric Tool Repairer Relationship Specialty Start Date End Date Ginny Marte DO [address] [place] [address] PCP - General 09/30/24 Additional Source Comments The information contained in this document represents components of the legal health record. It is not the complete legal health record.[facility]
== END 2025-06-04 19:34 | disposition home or self-care (01) ==
PROVIDERS: Physician Assistant Medical; Emergency Provider Emergency Medicine Emergency Medical Services
DX: G43.909 Migraine, unspecified, not intractable, without status migrainosus (principal); Z03.818 Encounter for observation for suspected exposure to other biological agents ruled out; R42 Dizziness and giddiness; E78.5 Hyperlipidemia, unspecified; Z79.899 Other long term (current) drug therapy
CPT/HCPCS: 70450; 80053; 83735; 84484; 84702; 85025; 87637; 93005; 96361; 96374; 96375; 99284; 99285; J1885; J2765

== ENCOUNTER → 2025-06-04 10:27 | Outpatient (BNV) | payer OTHER, SELFPAY | PROVIDERS: Visit Provider Internal Medicine Cardiovascular Disease | DX: R42 Dizziness and giddiness (principal) | CPT/HCPCS: 93010 ==

== ENCOUNTER → 2025-06-04 16:59 | Outpatient (BNV) | payer OTHER, SELFPAY | PROVIDERS: Emergency Provider Emergency Medicine Emergency Medical Services; Visit Provider Radiology Diagnostic Radiology | DX: R51.9 Headache, unspecified (principal) | CPT/HCPCS: 70450 ==